=== PATIENT | female | born 1955 | race Caucasian/White ===

== ENCOUNTER → 2019-09-26 17:47 | Outpatient (CLI) | payer MEDICARE, SELFPAY ==
--- NOTE | ~2019-09-26 | MM_ITS ---
EXAMINATION: MM screening [facility] BI w bob HISTORY: Screening mammogram TECHNIQUE: Craniocaudal and mediolateral oblique 3-D tomosynthesis images were obtained and synthetic 2-D images were generated. CAD analysis was submitted and interpreted. COMPARISON: 07/23/2018, 09/24/2015, 07/01/2013 BREAST PARENCHYMAL COMPOSITION: There are scattered areas of fibroglandular density. FINDINGS: There is no evidence of suspicious mass, calcification, or architectural distortion to sugg est malignancy in either breast. There has been no suspicious interval change. IMPRESSION: 1. No mammographic evidence of malignancy. 2. Recommend routine screening mammography in one year. BI-RADS Category 1: Negative Reviewed, dictated and finalized at location A.
== END ==
PROVIDERS: Visit Provider Family Medicine
DX: Z12.31 Encounter for screening mammogram for malignant neoplasm of breast (principal)
CPT/HCPCS: 77063; 77067

== ENCOUNTER 2020-05-14 02:14 | Outpatient (CLI) | payer MEDICARE, SELFPAY ==
[2020-05-14 21:22] LABS: SARS-CoV-2 RNA PCR Negative
== END 2020-05-14 02:15 | disposition home or self-care (01) ==
LOC: ANHCOVIDDT 02:15
PROVIDERS: PCP Family Medicine; Visit Provider Internal Medicine Gastroenterology
DX: Z01.818 Encounter for other preprocedural examination (principal); Z20.828 Contact with and (suspected) exposure to other viral communicable diseases
CPT/HCPCS: 87635; C9803; U0003

== ENCOUNTER 2020-05-17 00:16 | Day surgery (SDC) | payer MEDICARE, SELFPAY ==
[2020-05-10 15:24] VITALS: BMI 25.0
[2020-05-17 08:26] VITALS: BP 152/94; PULSE 42; RESP 16; TEMP 36.5; O2SAT 100; BMI 24.5
--- NOTE | 2020-05-17 08:36 | ECG_ITS ---
Measurements Intervals [place] Rate: 83 P: 61 TX: 151 QRS: 50 QRSD: 80 T: 70 QT: 381 QTc: 450 Interpretive Statements SINUS RHYTHM VENTRICULAR BIGEMINY POSSIBLE RIGHT ATRIAL ENLARGEMENT LEFT ATRIAL ENLARGEMENT INCOMPLETE RIGHT BUNDLE BRANCH BLOCK BASELINE ARTIFACT- I, AVR ABNORMAL ECG Electronically Signed On 05-17-2020 8:45:08 DISTRICT CLAIMS MANAGER by Goldy Hanson D.O.
--- NOTE | 2020-05-17 08:38 | PM.IMHP ---
H&P: HPI History of Present Illness Date/Time: 05/17/20 08:38 Chief complaint: Hx of Colon Polyps Narrative: Reason for visit is colonoscopy. This very pleasant lady seen in consultation request of the primary physician. Impression: Screening and surveillance colonoscopy. The patient's history of adenomatous colon polyps and a strong family history of colon cancer. recommendation: Colonoscopy. History: This very pleasant lady's being evaluated for screening and surveillance colonoscopy. She has a history adenomatous colon polyps. She has a strong family history of colon cancer. She does have occasional indigestion, but her GI review systems otherwise negative. The patient does complain of palpitations at night time. She denies any chest pressure,. She has a little bit short of breath when she has palpitations. Physical examination: General: very pleasant patient in no acute distress. HEENT: Head was normocephalic sclerae is clear mouth without masses neck was supple. Heart: Rate rhythm Bradycardic. She has occasional an irregular rhythm. Lungs: CTA. Abdomen: Soft with no guarding or rigidity. Bowel sounds were active. Neurologic: Cranial nerves 2 through 12 intact. No focal defects. No clonus. Musculoskeletal system: Revealed no joint tenderness or swelling no muscle atrophy. Extremities: Reveal no significant edema. Skin: Warm and dry with normal turgor. Mental status: intact. Patient is alert and oriented. Review of Systems Review of Systems: All systems reviewed & are unremarkable except as noted in HPI and below PMFSH Past Medical History Medical History (Updated 05/17/20 @ 08:37 by Jak Oneill DO) Adenomatous colon polyp Ocular migraine Surgical History Surgical History (Updated 05/17/20 @ 08:38 by Jak Oneill DO) H/O colonoscopy Family History Family History Mother Acute myocardial infarction 66y/o Hypertension Heart disease Father Carcinoma of colon Hypertension Sibling Carcinoma of colon Social History Social History Smoking status: Light tobacco smoker Tobacco type: cigarettes Alcohol intake: current Drinks per week: 10 Alcohol use details: WINE/7&7'S Substance use: never Substance use type: does not use Living arrangements: with family Spiritual care concerns: No Meds Home Medications and Allergies Home Medications Medication Instructions Recorded Confirmed Type vitamins A,C,X-rxtb-qkudpp 14,320 1 cap PO BID #60 cap 01/24/20 05/17/20 Rx unit-226 mg-200 unit capsule Adults Multivitamin 1 cap PO DAILY 05/10/20 05/17/20 History cholecalciferol (vitamin D3) 50 mcg PO DAILY 05/10/20 05/17/20 History [Vitamin D3] magnesium 400 mg PO DAILY 05/10/20 05/17/20 History Allergies Allergy/AdvReac Type Severity Reaction Status Date / Time No Known Allergies Allergy Unknown Verified 05/17/20 08:25 Vital Signs Vital Signs - 24 hr 05/17/20 08:26 Temperature 36.5 C Pulse Rate 42 L Respiratory Rate 16 Blood Pressure 152/94 H Pulse Oximetry 100
[2020-05-17] MEDS: LACTATED RINGERS 1,000 ML 150 ML IV CONT (08:49)
--- NOTE | 2020-05-17 08:51 | SUR.PREOP ---
PT. HEART RATE PER PULSE OXIMETER 44. UPON PALPATION, HEART RATE 42-44/MINUTE. PT. PLACED ON 3-LEAD GRINDER OPERATOR, APPEARS TO BE BIGEMINY RHYTHM. DR. HOANG MADE AWARE, ORDERS RECEIVED FOR STAT EKG. EKG COMPLETED. DR. HOANG AT BEDSIDE TO SPEAK WITH PATIENT.
--- NOTE | 2020-05-17 08:56 | WPDANESEPPF ---
Anes - Initial Pre Proc Eval Procedure: Operation Date: 05/17/20 09:30 Proposed Procedures p Screening Colonoscopy - Jak Oneill DO Date/Time: 05/17/20 08:56 Surgeon: Jak Oneill DO Pre Op Diagnosis: Hx of Colon Polyps Patient Data Age: 65 Gender: F Height: 5 ft 3 in Weight: 62.9 kg Last Vital Signs Temp 97.7 F 05/17/20 08:26 Pulse 42 L 05/17/20 08:26 Resp 16 05/17/20 08:26 BP 152/94 H 05/17/20 08:26 Pulse Ox 100 05/17/20 08:26 Allergies Allergy/AdvReac Type Severity Reaction Status Date / Time No Known Allergies Allergy Unknown Verified 05/17/20 08:25 Home Medications Medication Instructions Recorded Confirmed Type vitamins A,C,M-wfpl-sezofy 14,320 1 cap PO BID #60 cap 01/24/20 05/17/20 Rx unit-226 mg-200 unit capsule Adults Multivitamin 1 cap PO DAILY 05/10/20 05/17/20 History cholecalciferol (vitamin D3) 50 mcg PO DAILY 05/10/20 05/17/20 History [Vitamin D3] magnesium 400 mg PO DAILY 05/10/20 05/17/20 History Patient hx anesthesia problems: none Family hx anesthesia problems: none PMFSH Past Medical History Medical History (Updated 05/17/20 @ 08:37 by Jak Oneill DO) Adenomatous colon polyp Ocular migraine Surgical History Surgical History (Updated 05/17/20 @ 08:38 by Jak Oneill DO) H/O colonoscopy Family History Family History Mother Acute myocardial infarction 66y/o Hypertension Heart disease Father Carcinoma of colon Hypertension Sibling Carcinoma of colon Social History Social History Smoking status: Light tobacco smoker Tobacco type: cigarettes Alcohol intake: current Drinks per week: 10 Alcohol use details: WINE/7&7'S Substance use: never Substance use type: does not use Living arrangements: with family Spiritual care concerns: No Anes - Eval Final PreProcedure Day of Procedure 05/17/20 08:56 Patient weight: normal Heart: irregular rhythm Lungs: clear to auscultation Airway: Mallampati scale class II Neurological: alert and oriented Last oral intake: >/= 8 hours ASA classification: III Emergent: no Anesthetic plan: proceed Anesthesia type and monitoring: general GIVS and standard monitoring Informed Consent: The patient's anesthetic plan and its attendant risks and benefits were discussed with the patient/family/POA. Questions were solicited and answers provided to the satisfaction of the patient/family/POA.
[2020-05-17 09:28] VITALS: BP 130/75; PULSE 84; RESP 21; O2SAT 98
[2020-05-17 09:38] VITALS: BP 140/99; PULSE 79; RESP 25; O2SAT 98
--- NOTE | 2020-05-17 09:45 | SUR.PHASEII ---
DR RODRIGUEZ INSTRUCTED PATIENT TO FOLLOW UP WITH PRIMARY DOCTOR, DR. WILBERT PEREZ, WITH HEART ISSUES.
[2020-05-17 09:48] VITALS: BP 160/81; PULSE 77; RESP 24; O2SAT 100
== END 2020-05-17 10:00 | disposition home or self-care (01) ==
PROVIDERS: PCP Family Medicine; Visit Provider Internal Medicine Gastroenterology
PROC: 0DJD8ZZ Inspection of Lower Intestinal Tract, Via Natural or Artificial Opening Endoscopic (ICD-10-PCS; CPT 45378; principal; 2020-05-17 09:30)
DX: Z12.11 Encounter for screening for malignant neoplasm of colon (principal); D12.2 Benign neoplasm of ascending colon; D12.0 Benign neoplasm of cecum; Z80.0 Family history of malignant neoplasm of digestive organs; K57.30 Diverticulosis of large intestine without perforation or abscess without bleeding; F17.210 Nicotine dependence, cigarettes, uncomplicated
CPT/HCPCS: 45385; 45380; 88305; 93005; J2704; J7120

== ENCOUNTER 2020-08-03 10:41 | Outpatient (CLI) | payer MEDICARE, SELFPAY ==
[2020-08-03 11:31] LABS: Cholesterol 208 mg/dL (0-200); HDL Direct 53 mg/dL; Triglycerides 94 mg/dL (<150)
[2020-08-03 11:42] LABS: LDL Cholesterol Direct 148 mg/dL
== END 2020-08-03 10:42 | disposition home or self-care (01) ==
PROVIDERS: PCP Family Medicine; Visit Provider Internal Medicine Cardiovascular Disease
DX: E78.5 Hyperlipidemia, unspecified (principal)
CPT/HCPCS: 36415; 80061

== ENCOUNTER 2020-08-31 07:31 | Outpatient (CLI) | payer MEDICARE, SELFPAY ==
--- NOTE | 2020-08-31 07:41 | ECHO_ITS ---
Patient Info Name: Patrica Ospina Age: 65 years : 1955 Gender: Female Ht: 63 in Wt: 143 lbs BSA: 1.71 m2 HR: 82 bpm BP: 182 / 91 mmHg Exam Date: 08/31/2020 7:51 AM Exam Location: [facility] Patient Status: Outpatient Admit Date: 08/31/2020 Staff Ordering Physician: Goldy Hanson DO Steel Heater: Shahida Rai RDCS Attending Provider: Goldy Hanson DO Referring Physician: Valentin MENDEZ; Exam Type: CA echo doppler color flow Study Info Indications R00.2 - Palpitations Complete two-dimensional, color flow and Doppler transthoracic echocardiogram is performed. Summary 1. Complete two-dimensional, color flow and Doppler transthoracic echocardiogram is performed. 2. Left ventricular chamber dimension is normal. 3. Left ventricular systolic function is normal, estimated at 55-60%. 4. The left ventricular diastolic function is abnormal. 5. E/e' 11 is mildly elevated. 6. Left atrial chamber dimension is moderately enlarged. 7. Right atrial chamber dimension is moderately enlarged. 8. Atrial septal aneurysm with evidence of right to left shunt suggestive of small patent foramen ovale. 9. There is trace aortic valve regurgitation. 10. There is mild mitral valve regurgitation. 11. There is mild tricuspid valve regurgitation. 12. No pulmonary hypertension, estimated pulmonary arterial systolic pressure is 38 mmHg. 13. There is trace pulmonic regurgitation. Left Ventricle E/e' 11 is mildly elevated. Left ventricular chamber dimension is normal. Left ventricular systolic function is normal, estimated at 55-60%. The left ventricular diastolic function is abnormal. Right Ventricle Right ventricular chamber dimension is normal. Right ventricular systolic function is normal. Left Atria Left atrial chamber dimension is moderately enlarged. Right Atria Right atrial chamber dimension is moderately enlarged. Atrial Septum Atrial septal aneurysm with evidence of right to left shunt suggestive of small patent foramen ovale. Patent foramen ovale visualized by Doppler imaging. Aortic Valve The aortic valve is trileaflet. There is no aortic valve stenosis. There is trace aortic valve regurgitation. Pulmonic Valve There is trace pulmonic regurgitation. Mitral Valve There is no mitral valve stenosis. There is mild mitral valve regurgitation. Tricuspid Valve There is mild tricuspid valve regurgitation. No pulmonary hypertension, estimated pulmonary arterial systolic pressure is 38 mmHg. Pericardium/Pleural There is no pericardial effusion. Inferior Vena Cava Normal inferior vena cava with >50% collapse upon inspiration consistent with normal right atrial pressure, 5 mmHg. Aorta The aortic root size at the sinus of Valsalva is normal. Left Ventricular Outflow Tract Name Value Normal LVOT 2D LVOT Diameter 2.1 cm LVOT Doppler LVOT Peak Gradient 3 mmHg LVOT Mean Gradient 1 mmHg LVOT VTI 19 cm LVOT VTI/AV VTI Ratio 0.7 LVOT Stroke Volume
--- NOTE | 2020-08-31 07:41 | EST_ITS ---
Patient Info Name: Patrica Ospina Age: 65 years : 1955 Gender: Female Ht: 63 in Wt: 145 lbs BSA: 1.72 m2 Exam Date: 08/31/2020 8:45 AM Exam Location: [facility] Stress Patient Status: Outpatient Admit Date: 08/31/2020 Staff Ordering Physician: Goldy Hanson DO Attending Provider: Goldy Hanson DO Exercise Technologist: Jodi Cardenas CT Exercise Physician: Goldy Hanson DO Exam Type: CA stress test treadmill Study Info A treadmill exercise stress test was performed. Summary 1. 1. Negative [place] exercise stress test for ischemic ST changes by ECG criteria. 2. 2. Good functional capacity, achieving 8.9 METs of workload. 3. 3. Appropriate HR response to exercise. 4. 4. Appropriate HR recovery at 1 minute post exercise. 5. 5. Frequent ventricular ectopics. 6. 6. No imaging with stress testing. 7. 7. Patient informed of the above results. Protocol: [place] Stress ECG Details Stage: REST Duration (min): 7 min : 12 sec Speed (mph): 0.0 Grade (%): 0 HR (bpm): 90 SBP (mmHg): 151 DBP (mmHg): 90 METS: --- Stage: REST Duration (min): 7 min : 53 sec Speed (mph): 0.0 Grade (%): 0 HR (bpm): 78 SBP (mmHg): 151 DBP (mmHg): 90 METS: --- Stage: REST Duration (min): 9 min : 22 sec Speed (mph): 0.0 Grade (%): 0 HR (bpm): 80 SBP (mmHg): 151 DBP (mmHg): 90 METS: --- Stage: REST Duration (min): 14 min : 45 sec Speed (mph): 0.0 Grade (%): 0 HR (bpm): 83 SBP (mmHg): 151 DBP (mmHg): 90 METS: --- Stage: STAGE 1 Duration (min): 1 min : 0 sec Speed (mph): 1.7 Grade (%): 10 HR (bpm): 103 SBP (mmHg): 151 DBP (mmHg): 90 METS: --- Stage: STAGE 1 Duration (min): 2 min : 0 sec Speed (mph): 1.7 Grade (%): 10 HR (bpm): 109 SBP (mmHg): 151 DBP (mmHg): 90 METS: --- Stage: STAGE 1 Duration (min): 3 min : 0 sec Speed (mph): 1.7 Grade (%): 10 HR (bpm): 112 SBP (mmHg): 161 DBP (mmHg): 93 METS: --- Stage: STAGE 2 Duration (min): 1 min : 0 sec Speed (mph): 2.5 Grade (%): 12 HR (bpm): 115 SBP (mmHg): 161 DBP (mmHg): 93 METS: --- Stage: STAGE 2 Duration (min): 2 min : 0 sec Speed (mph): 2.5 Grade (%): 12 HR (bpm): 120 SBP (mmHg): 184 DBP (mmHg): 93 METS: --- Stage: STAGE 2 Duration (min): 3 min : 0 sec Speed (mph): 2.5 Grade (%): 12 HR (bpm): 122 SBP (mmHg): 184 DBP (mmHg): 93 METS: --- Stage: STAGE 3 Duration (min): 1 min : 0 sec Speed (mph): 3.4 Grade (%): 14 HR (bpm): 132 SBP (mmHg): 175 DBP (mmHg): 99 METS: --- Stage: STAGE 3 Duration (min): 1 min : 0 sec Speed (mph): 3.4 Grade (%): 14 HR (bpm): 132 SBP (mmHg): 175 DBP (mmHg): 99 METS: --- Stage: RECOVERY Duration (min): 0 min : 59 sec Speed (mph): 0.0 Grade (%):
== END 2020-08-31 07:32 | disposition home or self-care (01) ==
PROVIDERS: PCP Family Medicine; Visit Provider Internal Medicine Cardiovascular Disease
DX: R00.2 Palpitations (principal)
CPT/HCPCS: 93017; 93306

== ENCOUNTER 2020-09-28 10:05 | Outpatient (CLI) | payer MEDICARE, SELFPAY ==
[2020-09-28 11:10] LABS: Hematocrit 41.6 % (37.0-47.0); Hemoglobin 13.6 g/dL (12.0-15.0); Mean Corpuscular HGB Conc 32.7 g/dl (32-36); Mean Corpuscular Hemoglobin 30.3 pg (26-34); Mean Corpuscular Volume 92.7 fl (80-100); Platelet Count Result 263 k/mm3 (150-375); Red Blood Count 4.49 M/mm3 (4.2-5.4); Red Cell Distribution Width 13.1 % (11.5-14.5); White Blood Count 5.4 K/mm3 (4.5-10.0)
[2020-09-28 11:37] LABS: Alanine Aminotransferase 30 U/L (4-35); Albumin Level 4.3 g/dL (3.5-5.1); Alkaline Phosphatase 77 U/L (38-126); Anion Gap 3 mmol/L (8-16); Aspartate Amino Transferase 30 U/L (14-36); Bilirubin,Total 0.6 mg/dL (0.2-1.3); Blood Urea Nitrogen 16 mg/dL (7-17); Carbon Dioxide 33 mmol/L (22-30); Chloride 103 mmol/L (98-107); Cholesterol 224 mg/dL (0-200); Estimated Glomerular Filt Rate > 60; Glucose 107 mg/dL (65-105); HDL Direct 51 mg/dL; Potassium 4.8 mmol/L (3.4-5.0); Sodium 139 mmol/L (137-145); Triglycerides 120 mg/dL (<150)
[2020-09-28 11:48] LABS: LDL Cholesterol Direct 140 mg/dL
== END 2020-09-28 10:06 | disposition home or self-care (01) ==
PROVIDERS: PCP Family Medicine; Visit Provider Family Medicine
DX: R53.83 Other fatigue (principal); I10 Essential (primary) hypertension; E78.2 Mixed hyperlipidemia; E55.9 Vitamin D deficiency, unspecified
CPT/HCPCS: 36415; 80053; 80061; 82306; 84443; 85027

== ENCOUNTER → 2020-11-21 15:46 | Outpatient (CLI) | payer MEDICARE, SELFPAY ==
--- NOTE | ~2020-11-21 | MM_ITS ---
EXAMINATION: MM screening [facility] BI w bob HISTORY: Screening mammogram TECHNIQUE: Craniocaudal and mediolateral oblique 3-D tomosynthesis images were obtained and synthetic 2-D images were generated. CAD analysis was submitted and interpreted. COMPARISON: 09/26/2019, 07/23/2018, 09/24/2015 bilateral digital screening mammogram examinations BREAST PARENCHYMAL COMPOSITION: There are scattered areas of fibroglandular density. FINDINGS: Stable mild fibroglandular asymmetry since prior examinations. There is no evidence of susp icious mass, calcification, or architectural distortion to suggest malignancy in either breast. There has been no suspicious interval change. IMPRESSION: 1. No mammographic evidence of malignancy. 2. Recommend routine screening mammography in one year. BI-RADS Category 1: Negative Reviewed, dictated and finalized at location A.
== END ==
PROVIDERS: PCP Family Medicine; Visit Provider Family Medicine
DX: Z12.31 Encounter for screening mammogram for malignant neoplasm of breast (principal)
CPT/HCPCS: 77063; 77067

== ENCOUNTER 2020-12-04 10:33 | Outpatient (CLI) | payer MEDICARE, SELFPAY ==
[2020-12-04 11:22] LABS: Cholesterol 215 mg/dL (0-200); HDL Direct 57 mg/dL; Triglycerides 90 mg/dL (<150)
[2020-12-04 11:25] LABS: Alanine Aminotransferase 17 U/L (4-35); Alkaline Phosphatase 69 U/L (38-126); Anion Gap 5 mmol/L (8-16); Aspartate Amino Transferase 25 U/L (14-36); Bilirubin,Total 0.4 mg/dL (0.2-1.3); Blood Urea Nitrogen 16 mg/dL (7-17); Calcium 9.1 mg/dL (8.4-10.2); Carbon Dioxide 30 mmol/L (22-30); Chloride 106 mmol/L (98-107); Estimated Glomerular Filt Rate > 60; Glucose 102 mg/dL (65-105); Potassium 4.9 mmol/L (3.4-5.0); Sodium 141 mmol/L (137-145)
[2020-12-04 11:34] LABS: LDL Cholesterol Direct 111 mg/dL
== END 2020-12-04 10:34 | disposition home or self-care (01) ==
PROVIDERS: PCP Family Medicine; Visit Provider Internal Medicine Cardiovascular Disease
DX: E78.5 Hyperlipidemia, unspecified (principal)
CPT/HCPCS: 36415; 80053; 80061

== ENCOUNTER 2021-04-15 07:46 | Outpatient (CLI) | payer MEDICARE, SELFPAY ==
--- NOTE | 2021-04-25 13:42 | WPDHOMESLEEP ---
Sleep Study - Home Unattended Date of Study: 04/15/21 <Carolyn Mancilla DO - Last Filed: 04/25/21 13:59> Ordering Provider: Goldy Hanson DO <Carolyn Mancilla DO - Last Filed: 04/25/21 13:59> Interpreting Provider: Carolyn Mancilla DO <Carolyn Mancilla DO - Last Filed: 04/25/21 13:59> Home Sleep Study Type: Apnea Link Air <Carolyn Mancilla DO - Last Filed: 04/25/21 13:59> Height: 1.57 m <Carolyn Mancilla DO - Last Filed: 04/25/21 13:59> Weight: 63.503 kg <Carolyn Mancilla DO - Last Filed: 04/25/21 13:59> Body Mass Index: 25.6 <Carolyn Mancilla DO - Last Filed: 04/25/21 13:59> Neck Circumference (inches): 14 <Carolyn Mancilla DO - Last Filed: 04/25/21 13:59> [place]: 1 <Carolyn Mancilla DO - Last Filed: 04/25/21 13:59> Reason for Sleep Study Loud snoring, gasping for air at night and ventricular ectopy <Carolyn Mancilla DO - Last Filed: 04/25/21 13:59> Sleep History The patient is a 66-year-old female with hypertension, hyperlipidemia, palpitations, anxiety and depression that had a home sleep test ordered by her pipe crew foreman due to loud snoring, waking up gasping for air and heart palpitations. The patient is currently retired. She denies awakening from sleep short of breath. She rarely awakens at night with heartburn, belching or cough. She occasionally snores loud enough that others complain. She denies having trouble sleeping when she has a cold. She rarely wakes up gasping for air throughout the night. She denies heart palpitations throughout the night. She denies falling asleep during the day and while driving. She denies sleep paralysis and cataplexy. she occasionally experiences vivid dreamlike scenes upon awakening or falling asleep. She denies having nightmares. She occasionally has thoughts racing through her mind. She rarely feels sad, depressed or anxious. She occasionally notices that her legs jerk. She occasionally experiences crawling and aching feelings in her legs. She rarely has leg pain during the night. She denies grinding her teeth during sleep and awakening with jaw pain. She is really bothered by pain during the day and is never awakened by pain during the night. She rarely wakes up feeling stiff in the morning with sore and achy muscles. She goes to bed at 9:00 p.m. on both the weekdays and weekends. It takes her 30-60 minutes to fall asleep. She will wake up 4-5 times per night. When she wakes up, she will roll onto her side. She is able to fall asleep immediately. She wakes up at 9:00 a.m. on both the weekdays and weekends. She gets about 10 hours of sleep per night. She will stay in bed for 10 minutes after awakening in the morning. She does not consume any caffeinated beverages within 2 hours of going to sleep. She does not engage in physical exercise before bedtime. She will watch television before falling asleep. She rarely takes naps in the afternoon or the evening. She will drink 2 cups of coffee per day and 1-2 alcoholic beverages per day. She denies tobacco and recreational drug use. <Carolyn Mancilla DO - Last Filed: 04/25/21 13:59> [facility] Past Medical History Medical History: Medical History Adenomatous colon polyp Anxiety Depression Encounter for immunization Essential hypertension Ocular migraine <Carolyn Mancilla DO - Last Filed: 04/25/21 13:59> Surgical History Surgical History: Surgical History H/O colonoscopy <Carolyn Mancilla DO - Last Filed: 04/25/21 13:59> Family History Family History: Family History Mother Acute myocardial infarction 66y/o Hypertension Heart disease Father Carcinoma of colon Hypertension Si
[2021-04-25 13:58] VITALS: BMI 25.6
== END 2021-04-16 10:34 | disposition home or self-care (01) ==
LOC: ANHCSM 07:47
PROVIDERS: PCP Family Medicine; Visit Provider Internal Medicine Cardiovascular Disease
DX: G47.10 Hypersomnia, unspecified (principal); G47.33 Obstructive sleep apnea (adult) (pediatric)
CPT/HCPCS: 95806

== ENCOUNTER 2021-04-30 08:38 | Outpatient (CLI) | payer MEDICARE, SELFPAY ==
--- NOTE | ~2021-04-30 | DEXA_ITS ---
Bone Density Report Name: Patrica Ospina Age: 66 Sex: Female Ethnicity: White Date of : 1955 Indication: postmenopausal; hysterectomy; Referring Provider: Radha Schuster Study: Bone densitometry was performed. Exam Date: April 30, 2021 Accession number: [id number] Bone Density: Region BMD T-score Z-score Classification AP Spine (L1-L4) 0.815 -2.1 -0.2 Osteopenia Femoral Neck (Left) 0.635 -1.9 -0.3 Osteopenia Total Hip (Left) 0.799 -1.2 0.2 Osteopenia Total Hip Bilateral Avg 0.794 -1.3 0.2 Osteopenia Femoral Neck (Right) 0.576 -2.5 -0.8 Osteoporosis Total Hip (Right) 0.787 -1.3 0.1 Osteopenia World Health Organization criteria for BMD impression classify patients as: Normal (T-score at or above -1.0), Osteopenia (T-score between -1.0 and -2.5), or Osteoporosis (T-score at or below -2.5). 10-year Fracture Risk: FRAX not reported because: Some T-score for Spine Total or Hip Total or Femoral Neck at or below -2.5 Clinical Information Provided by Patient: Has used the following medications: Vitamin D Has the following medical conditions: Hysterectomy Patient maximum height was 63 Menopause Age: 55 Drinks caffeinated beverages Onset of menses at age 16 Number of children 3 Impression: The patient has osteoporosis, based on the Right Femoral Neck T-score. Discussion: INCREASED RISK OF FRACTURE. BONE DENSITY IS UNDESIRABLY LOW AT ONE OR MORE SKELETAL SITES, CONSISTENT WITH POSTMENOPAUSAL OSTEOPOROSIS. This patient's lowest T-score meets the World Health Organization's (WHO) criteria for osteoporosis at one or more sites (T-score -2.5 or below). In untreated patients, the risk of osteoporotic fracture increases approximately two-fold for each 1.0 SD decrease in T-score. Low bone density is not the only risk factor for fracture; also consider factors such as patient's age, frailty or poor health, risk of falling, risk of injury, previous osteoporotic fracture, family history of osteoporosis, cigarette smoking, low body weight, etc. Not everyone with low bone mineral density has osteoporosis; osteomalacia and other metabolic bone disorders should also be considered. Patients who have osteoporosis should be evaluated for specific diseases and conditions (secondary causes) that may cause or contribute to bone loss. The [place] Association of Clinical Endocrinologists (AACE) and National Osteoporosis Foundation (NOF) recommend pharmacologic intervention for all postmenopausal women whose T-score is in this range. The patient should follow a healthful lifestyle (good nutrition with adequate calcium and vitamin D, and appropriate weight-bearing exercise). Follow-Up: Consider a repeat BMD and Vertebral Fracture Assessment (VFA) exam in 2 years or sooner if medically necessary, to reassess this patient's status. Roberto
== END 2021-04-30 08:39 | disposition home or self-care (01) ==
LOC: ANHIMG 08:41
PROVIDERS: PCP Family Medicine; Visit Provider Family Medicine
DX: Z78.0 Asymptomatic menopausal state (principal); M85.88 Other specified disorders of bone density and structure, other site; M85.852 Other specified disorders of bone density and structure, left thigh; M85.851 Other specified disorders of bone density and structure, right thigh; M81.0 Age-related osteoporosis without current pathological fracture
CPT/HCPCS: 77080

== ENCOUNTER 2021-06-03 08:52 | Outpatient (CLI) | payer MEDICARE, SELFPAY ==
[2021-06-03 09:39] LABS: Hematocrit 40.9 % (37.0-47.0); Hemoglobin 13.7 g/dL (12.0-15.0); Mean Corpuscular HGB Conc 33.5 g/dl (32-36); Mean Corpuscular Hemoglobin 32.2 pg (26-34); Mean Corpuscular Volume 96.2 fl (80-100); Platelet Count Result 254 k/mm3 (150-375); Red Blood Count 4.25 M/mm3 (4.2-5.4); Red Cell Distribution Width 12.4 % (11.5-14.5); White Blood Count 5.3 K/mm3 (4.5-10.0)
[2021-06-03 09:51] LABS: Alanine Aminotransferase 19 U/L (4-35); Albumin Level 4.1 g/dL (3.5-5.1); Alkaline Phosphatase 90 U/L (38-126); Anion Gap 4 mmol/L (8-16); Aspartate Amino Transferase 23 U/L (14-36); Bilirubin,Total 0.5 mg/dL (0.2-1.3); Blood Urea Nitrogen 14 mg/dL (7-17); Calcium 9.2 mg/dL (8.4-10.2); Carbon Dioxide 30 mmol/L (22-30); Chloride 100 mmol/L (98-107); Cholesterol 237 mg/dL (0-200); Estimated Glomerular Filt Rate > 60; Glucose 115 mg/dL (65-110); HDL Direct 56 mg/dL; Potassium 4.4 mmol/L (3.4-5.0); Sodium 134 mmol/L (137-145); Triglycerides 142 mg/dL (<150)
[2021-06-03 10:02] LABS: LDL Cholesterol Direct 152 mg/dL
[2021-06-03 13:35] LABS: Vitamin D 25 Hydroxy 55.7 ng/mL
== END 2021-06-03 08:53 | disposition home or self-care (01) ==
LOC: ANHLAB 08:56
PROVIDERS: PCP Family Medicine; Visit Provider Family Medicine
DX: R53.83 Other fatigue (principal); E55.9 Vitamin D deficiency, unspecified; I10 Essential (primary) hypertension; E78.2 Mixed hyperlipidemia
CPT/HCPCS: 36415; 80053; 80061; 82306; 84443; 85027

== ENCOUNTER 2021-06-25 07:42 | Outpatient (CLI) | payer MEDICARE, SELFPAY ==
--- NOTE | 2021-07-09 15:21 | WPDSLEEPSTUD ---
Sleep Study Date of Study: 06/25/21 <Carolyn Mancilla DO - Last Filed: 07/09/21 15:47> Ordering Provider: Goldy Hanson DO <Carolyn Maniclla, DO - Last Filed: 07/09/21 15:47> Interpreting Physician: Carolyn Mancilla DO <Carolyn Mancilla DO - Last Filed: 07/09/21 15:47> Sleep Study Type: CPAP Titration <Carolyn Mancilla DO - Last Filed: 07/09/21 15:47> Height: 1.57 m <Carolyn Mancilla DO - Last Filed: 07/09/21 15:47> Weight: 63.503 kg <Carolyn Mancilla DO - Last Filed: 07/09/21 15:47> Body Mass Index: 25.6 <Carolyn Mancilla DO - Last Filed: 07/09/21 15:47> Neck Circumference (inches): 13.5 <Carolyn Mancilla DO - Last Filed: 07/09/21 15:47> [place]: 5 <Carolyn Mancilla DO - Last Filed: 07/09/21 15:47> Reason for Sleep Study The patient had a HSAT on 04/15/21 that showed an AHI of 13.8. She had 28 central apneas with a central apnea index of 2.6. It was recommended that she have a PAP Titration study. <Carolyn Mancilla DO - Last Filed: 07/09/21 15:47> Sleep History The patient is a 66-year-old female with hypertension, hyperlipidemia, palpitations, anxiety and depression that had a home sleep test ordered by her customer experience specialist due to loud snoring, waking up gasping for air and heart palpitations. The patient is currently retired. She denies awakening from sleep short of breath. She rarely awakens at night with heartburn, belching or cough. She occasionally snores loud enough that others complain. She denies having trouble sleeping when she has a cold. She rarely wakes up gasping for air throughout the night. She denies heart palpitations throughout the night. She denies falling asleep during the day and while driving. She denies sleep paralysis and cataplexy. she occasionally experiences vivid dreamlike scenes upon awakening or falling asleep. She denies having nightmares. She occasionally has thoughts racing through her mind. She rarely feels sad, depressed or anxious. She occasionally notices that her legs jerk. She occasionally experiences crawling and aching feelings in her legs. She rarely has leg pain during the night. She denies grinding her teeth during sleep and awakening with jaw pain. She is really bothered by pain during the day and is never awakened by pain during the night. She rarely wakes up feeling stiff in the morning with sore and achy muscles. She goes to bed at 9:00 p.m. on both the weekdays and weekends. It takes her 30-60 minutes to fall asleep. She will wake up 4-5 times per night. When she wakes up, she will roll onto her side. She is able to fall asleep immediately. She wakes up at 9:00 a.m. on both the weekdays and weekends. She gets about 10 hours of sleep per night. She will stay in bed for 10 minutes after awakening in the morning. She does not consume any caffeinated beverages within 2 hours of going to sleep. She does not engage in physical exercise before bedtime. She will watch television before falling asleep. She rarely takes naps in the afternoon or the evening. She will drink 2 cups of coffee per day and 1-2 alcoholic beverages per day. She denies tobacco and recreational drug use. <Carolyn Mancilla DO - Last Filed: 07/09/21 15:47> [facility] Past Medical History Medical History: Medical History Adenomatous colon polyp Anxiety Depression Encounter for immunization Essential hypertension Ocular migraine <Carolyn Mancilla DO - Last Filed: 07/09/21 15:47> Surgical History Surgical History: Surgical History H/O colonoscopy <Carolyn Mancilla DO - Last Filed: 07/09/21 15:47> Family History Family History: Family History Mother Acute myocardial infarction Passed aw
[2021-07-09 15:32] VITALS: BMI 25.6
== END 2021-06-26 06:29 | disposition home or self-care (01) ==
LOC: ANHCSM 07:43
PROVIDERS: PCP Family Medicine; Visit Provider Internal Medicine Cardiovascular Disease
DX: G47.33 Obstructive sleep apnea (adult) (pediatric) (principal)
CPT/HCPCS: 95811

== ENCOUNTER 2021-11-11 09:10 | Outpatient (CLI) | payer MEDICARE, SELFPAY ==
[2021-11-11 09:52] LABS: Hemoglobin 13.2 g/dL (12.0-15.0); Mean Corpuscular Hemoglobin 31.5 pg (26-34); Mean Corpuscular Volume 95.5 fl (80-100); Mean Platelet Volume 10.6 fl (7.4-10.4); Platelet Count Result 278 k/mm3 (150-375); Red Blood Count 4.19 M/mm3 (4.2-5.4); Red Cell Distribution Width 12.8 % (11.5-14.5); White Blood Count 5.4 K/mm3 (4.5-10.0)
[2021-11-11 10:08] LABS: Alanine Aminotransferase 19 U/L (6-35); Albumin Level 4.1 g/dL (3.5-5.1); Alkaline Phosphatase 76 U/L (38-126); Anion Gap 3 mmol/L (8-16); Aspartate Amino Transferase 25 U/L (14-36); Bilirubin,Total 0.6 mg/dL (0.2-1.3); Blood Urea Nitrogen 16 mg/dL (7-17); Calcium 8.5 mg/dL (8.4-10.2); Carbon Dioxide 31 mmol/L (22-30); Chloride 104 mmol/L (98-107); Cholesterol 193 mg/dL (0-200); Estimated Glomerular Filt Rate > 60; Glucose 120 mg/dL (65-110); HDL Direct 50 mg/dL; Potassium 4.4 mmol/L (3.4-5.0); Sodium 138 mmol/L (137-145); Triglycerides 119 mg/dL (<150)
[2021-11-11 10:19] LABS: LDL Cholesterol Direct 99 mg/dL
[2021-11-11 10:35] LABS: Iron 110 ug/dL (37-170)
[2021-11-11 10:47] LABS: Percent Iron Saturation 41 % (20-50)
[2021-11-11 10:55] LABS: Free T4 Free Thyroxine 0.92 ng/mL (0.78-2.19)
[2021-11-11 14:15] LABS: Hemoglobin A1C 5.6 % (<5.7)
== END 2021-11-11 09:11 | disposition home or self-care (01) ==
LOC: ANHLAB 09:12
PROVIDERS: PCP Family Medicine; Visit Provider Physician Assistant
DX: R53.83 Other fatigue (principal); E78.5 Hyperlipidemia, unspecified; I10 Essential (primary) hypertension; D64.9 Anemia, unspecified; Z13.1 Encounter for screening for diabetes mellitus; Z13.220 Encounter for screening for lipoid disorders; Z51.81 Encounter for therapeutic drug level monitoring; Z79.899 Other long term (current) drug therapy
CPT/HCPCS: 36415; 80053; 80061; 82607; 82728; 83036; 83540; 83550; 84439; 84443; 85027

== ENCOUNTER → 2022-02-28 12:24 | Outpatient (CLI) | payer MEDICARE, SELFPAY ==
--- NOTE | ~2022-02-28 | MM_ITS ---
EXAMINATION: MM screening [facility] BI w bob HISTORY: Screening mammogram TECHNIQUE: Craniocaudal and mediolateral oblique 3-D tomosynthesis images were obtained and synthetic 2-D images were generated. CAD analysis was submitted and interpreted. COMPARISON: 11/21/2020, 09/26/2019, 07/23/2018 BREAST PARENCHYMAL COMPOSITION: There are scattered areas of fibroglandular density. FINDINGS: There is no suspicious mass, calcification, or architectural distortion to suggest malignan cy in either breast. There has been no suspicious interval change. IMPRESSION: 1. No mammographic evidence of malignancy. 2. Recommend routine screening mammography in one year. BI-RADS Category 1: Negative Reviewed, dictated and finalized at location A.
== END ==
PROVIDERS: PCP Family Medicine; Visit Provider Family Medicine
DX: Z12.31 Encounter for screening mammogram for malignant neoplasm of breast (principal)
CPT/HCPCS: 77063; 77067

== ENCOUNTER 2022-11-06 09:54 | Outpatient (CLI) | payer MEDICARE, SELFPAY ==
[2022-11-06 10:23] LABS: Alanine Aminotransferase 22 U/L (6-35); Albumin Level 3.3 g/dL (3.5-5.1); Alkaline Phosphatase 46 U/L (38-126); Anion Gap 1 mmol/L (8-16); Aspartate Amino Transferase 25 U/L (14-36); Bilirubin,Total 0.6 mg/dL (0.2-1.3); Blood Urea Nitrogen 13 mg/dL (7-17); Calcium 8.1 mg/dL (8.4-10.2); Carbon Dioxide 32 mmol/L (22-30); Chloride 106 mmol/L (98-107); Cholesterol 144 mg/dL (0-200); Estimated Glomerular Filt Rate > 60; Glucose 110 mg/dL (65-110); HDL Direct 39 mg/dL; Potassium 4.9 mmol/L (3.4-5.0); Sodium 139 mmol/L (137-145); Triglycerides 132 mg/dL (<150)
[2022-11-06 10:34] LABS: LDL Cholesterol Direct 85 mg/dL
[2022-11-06 10:48] LABS: Hemoglobin A1C 5.9 % (<5.7)
[2022-11-06 10:56] LABS: Free T4 Free Thyroxine 0.91 ng/mL (0.78-2.19)
== END 2022-11-06 09:55 | disposition home or self-care (01) ==
PROVIDERS: PCP Family Medicine; Visit Provider Physician Assistant
DX: R53.83 Other fatigue (principal); E11.9 Type 2 diabetes mellitus without complications; Z13.220 Encounter for screening for lipoid disorders
CPT/HCPCS: 36415; 80053; 80061; 83036; 84439; 84443

== ENCOUNTER 2023-05-19 08:29 | Outpatient (CLI) | payer MEDICARE, SELFPAY ==
[2023-05-19 09:33] LABS: Alanine Aminotransferase 18 U/L (6-35); Alkaline Phosphatase 42 U/L (38-126); Anion Gap 4 mmol/L (8-16); Aspartate Amino Transferase 24 U/L (14-36); Bilirubin,Total 0.6 mg/dL (0.2-1.3); Blood Urea Nitrogen 15 mg/dL (7-17); Calcium 7.9 mg/dL (8.4-10.2); Carbon Dioxide 28 mmol/L (22-30); Chloride 105 mmol/L (98-107); Creatine Kinase 79 U/L (30-135); Estimated Glomerular Filt Rate > 60; Glucose 119 mg/dL (65-110); Potassium 4.2 mmol/L (3.4-5.0); Sodium 137 mmol/L (137-145)
== END 2023-05-19 08:30 | disposition home or self-care (01) ==
LOC: ANHLAB 08:31
PROVIDERS: PCP Family Medicine; Visit Provider Physician Assistant
DX: E53.8 Deficiency of other specified B group vitamins (principal); Z13.1 Encounter for screening for diabetes mellitus; M79.10 Myalgia, unspecified site
CPT/HCPCS: 36415; 80053; 82550; 82607

== ENCOUNTER 2023-05-25 15:54 | Outpatient (CLI) | payer MEDICARE, SELFPAY ==
[2023-05-25 16:46] LABS: Parathyroid Intact 39.1 pg/mL (7.5-53.5)
[2023-05-29 21:31] LABS: Ionized Calcium 4.9 mg/dL (4.7-5.5)
[2023-05-30 15:09] LABS: Vitamin D 1,25 (OH)2 Total 59 pg/mL (18-72); Vitamin D2 1,25 (OH)2 <8 pg/mL; Vitamin D3 1,25 (OH)2 59 pg/mL
== END 2023-05-25 15:55 | disposition home or self-care (01) ==
PROVIDERS: PCP Family Medicine; Visit Provider Physician Assistant
DX: E55.9 Vitamin D deficiency, unspecified (principal)
CPT/HCPCS: 36415; 82330; 82652; 83970

== ENCOUNTER → 2023-06-04 13:18 | Outpatient (CLI) | payer MEDICARE, SELFPAY ==
--- NOTE | ~2023-06-04 | MM_ITS ---
EXAMINATION: MM screening [facility] BI w bob HISTORY: Screening mammogram TECHNIQUE: Craniocaudal and mediolateral oblique 3-D tomosynthesis images were obtained and synthetic 2-D images were generated. CAD analysis was submitted and interpreted. COMPARISON: 02/28/2022, 11/21/2020, 09/26/2019 BREAST PARENCHYMAL COMPOSITION: There are scattered areas of fibroglandular density. FINDINGS: No suspicious mass, calcification, or architectural distortion are identified in either leonard ast to suggest malignancy. There has been no suspicious interval change. IMPRESSION: 1. No mammographic evidence of malignancy. 2. Recommend routine screening mammography in one year. BI-RADS Category 1: Negative Reviewed, dictated and finalized at location A. HER REPAIRER
== END ==
PROVIDERS: PCP Family Medicine; Visit Provider Family Medicine
DX: Z12.31 Encounter for screening mammogram for malignant neoplasm of breast (principal)
CPT/HCPCS: 77063; 77067

== ENCOUNTER 2023-06-17 01:54 | Day surgery (SDC) | payer MEDICARE, SELFPAY ==
[2023-06-03 10:20] VITALS: BMI 27.3
--- NOTE | 2023-06-15 09:22 | SUR.PREOP ---
Patient called regarding upcoming procedure. Reviewed preop instructions, new appointment times, and procedure prep.
[2023-06-17 07:55] VITALS: BP 147/85; PULSE 74; RESP 18; TEMP 36.2; O2SAT 98
[2023-06-17] MEDS: LACTATED RINGERS 1,000 ML 150 ML IV CONT (08:10)
--- NOTE | 2023-06-17 08:24 | WPDANESEPPF ---
Anes - Initial Pre Proc Eval Procedure: Operation Date: 06/17/23 09:00 Proposed Procedures p Colonoscopy - Palmer Nguyen MD Date/Time: 06/17/23 08:24 Surgeon: Palmer Nguyen MD Pre Op Diagnosis: hx of colon polyps, benign neoplasm of colon Patient Data Age: 68 Gender: F Height: 1.57 m Weight: 65.8 kg Last Vital Signs Temp 36.2 C L 06/17/23 07:55 Pulse 74 06/17/23 07:55 Resp 18 06/17/23 07:55 BP 147/85 H 06/17/23 07:55 Pulse Ox 98 06/17/23 07:55 O2 Del Method Room Air 06/17/23 07:55 Allergies Allergy/AdvReac Type Severity Reaction Status Date / Time No Known Allergies Allergy Unknown Verified 06/17/23 07:53 Home Medications Medication Instructions Recorded Confirmed Type vitamins A,C,U-mgle-pdncsl 4,296 1 cap PO BID #60 caps 01/24/20 06/03/23 Rx mcg-226 mg-90 mg capsule (PreserVision AREDS) cholecalciferol (vitamin D3) 50 50 mcg PO DAILY 05/10/20 06/03/23 History mcg (2,000 unit) capsule (Vitamin D3) magnesium 400 mg PO DAILY 05/10/20 06/03/23 History lisinopril 20 mg tablet 20 mg PO DAILY #90 tabs 02/12/23 06/03/23 Rx atorvastatin 20 mg tablet 20 mg PO DAILY #90 tabs 03/08/23 06/03/23 Rx duloxetine 20 mg capsule,delayed 20 mg PO DAILY #30 caps 04/29/23 06/03/23 Rx release alendronate 70 mg tablet 70 mg PO WEEKLY #12 tabs 06/07/23 Rx Patient hx anesthesia problems: none Family hx anesthesia problems: none Results Review: All pre-operative results and documents have been reviewed as part of the pre-operative evaluation. [facility] Past Medical History Medical History Adenomatous colon polyp Anxiety Depression Encounter for immunization Essential hypertension Ocular migraine Osteoporosis Surgical History Surgical History H/O colonoscopy Family History Family History Mother Acute myocardial infarction 66y/o Hypertension Heart disease Father Carcinoma of colon Hypertension Sibling Carcinoma of colon Social History Social History Smoking packs per day: 0.5 Smoking cigarettes per day: 10.0 Years smoked: 10 Smoking pack-years: 5.00 Smoking status: Former smoker Tobacco type: cigarettes Second hand tobacco smoke exposure: No Alcohol intake: current Drinks per week: 10 Alcohol use details: WINE Substance use: never Substance use type: does not use Lack of Transportation: No Lack of Food: Never True Current Housing: I Have Housing Concerned About Future Housing: No Difficulty Paying Gas/Electric Bills: No Difficulty Paying for Meds: No Currently Unemployed: No Education: Decline to Answer Difficulty w/ Childcare or Family Care: No Living arrangements: with family Occupation/Education: retired Gender identity (if verbalized by the patient): Female Spiritual care concerns: No Agree to blood products: Yes Anes - Eval Final PreProcedure Day of Procedure 06/17/23 08:24 Patient weight: normal Heart: regular rate and rhythm Lungs: decreased breath sounds Airway: Mallampati scale class II Neurological: alert and oriented Last oral intake: >/= 8 hours ASA classification: III Emergent: no Anesthetic plan: proceed Anesthesia type and monitoring: general GIVS and standard monitoring Results Review: All pre-operative results and documents have been reviewed as part of the pre-operative evaluation. Informed Consent: The patient's anesthetic plan and its attendant risks and benefits were discussed with the patient/family/POA. Questions were solicited and answers provided to the satisfaction of the patient/family/POA.
--- NOTE | 2023-06-17 08:53 | PM.HPGS ---
History of Present Illness History of Present Illness Consent: Risks, benefits, and alternatives have been discussed and questions answered. Patient agrees to proceed with procedure. Chief complaint: hx of colon polyps, benign neoplasm of colon Narrative: Patrica Ospina is a 68 year old female with colon polyp in 2019, father had colon cancer Review of Systems Constitutional: Constitutional: Denies headache(s) and Denies weakness Eyes: Eyes: Denies blurry vision ENT: Reports Normal hearing present, Denies headache(s) and Denies neck pain Cardiovascular: Cardiovascular: Denies chest pain and Denies dyspnea Respiratory: Respiratory: Denies dyspnea Gastrointestinal: Gastrointestinal: Reports no additional gastrointestinal complaints Genitourinary: Genitourinary: Denies dysuria Musculoskeletal: Musculoskeletal: Denies neck pain Integumentary/Breasts: Skin/Breast: Denies dry skin Neurologic: Reports Normal hearing present, Denies headache(s) and Denies weakness Psychiatric: Psychiatric: Denies anxiety Endocrine: Endocrine: Denies change in body appearance Hematologic/Lymphatic: Hematologic/Lymphatic: Denies easy bleeding Allergic/Immunologic: Allergic/Immunologic: Denies urticaria PMFSH Past Medical History Medical History (Updated 06/17/23 @ 08:53 by Palmer Nguyen MD) Adenomatous colon polyp Anxiety Depression Encounter for immunization Essential hypertension Family history of colon cancer Ocular migraine Osteoporosis Surgical History Surgical History H/O colonoscopy Family History Family History Mother Acute myocardial infarction 66y/o Hypertension Heart disease Father Carcinoma of colon Hypertension Sibling Carcinoma of colon Social History Social History Smoking packs per day: 0.5 Smoking cigarettes per day: 10.0 Years smoked: 10 Smoking pack-years: 5.00 Smoking status: Former smoker Tobacco type: cigarettes Second hand tobacco smoke exposure: No Alcohol intake: current Drinks per week: 10 Alcohol use details: WINE Substance use: never Substance use type: does not use Lack of Transportation: No Lack of Food: Never True Current Housing: I Have Housing Concerned About Future Housing: No Difficulty Paying Gas/Electric Bills: No Difficulty Paying for Meds: No Currently Unemployed: No Education: Decline to Answer Difficulty w/ Childcare or Family Care: No Living arrangements: with family Occupation/Education: retired Gender identity (if verbalized by the patient): Female Spiritual care concerns: No Agree to blood products: Yes Meds Home Medications and Allergies Home Medications Medication Instructions Recorded Confirmed Type vitamins A,C,A-zbvl-sxagfi 4,296 1 cap PO BID #60 caps 01/24/20 06/03/23 Rx mcg-226 mg-90 mg capsule (PreserVision AREDS) cholecalciferol (vitamin D3) 50 50 mcg PO DAILY 05/10/20 06/03/23 History mcg (2,000 unit) capsule (Vitamin D3) magnesium 400 mg PO DAILY 05/10/20 06/03/23 History lisinopril 20 mg tablet 20 mg PO DAILY #90 tabs 02/12/23 06/03/23 Rx atorvastatin 20 mg tablet 20 mg PO DAILY #90 tabs 03/08/23 06/03/23 Rx duloxetine 20 mg capsule,delayed 20 mg PO DAILY #30 caps 04/29/23 06/03/23 Rx release alendronate 70 mg tablet 70 mg PO WEEKLY #12 tabs 06/07/23 Rx Allergies Allergy/AdvReac Type Severity Reaction Status Date / Time No Known Allergies Allergy Unknown Verified 06/17/23 07:53 Vital Signs Vital Signs - 24 hr 06/17/23 07:55 Temperature 97.1 F L Pulse Rate 74 Respiratory Rate 18 Blood Pressure 147/85 H Pulse Oximetry 98 Oxygen Delivery Room Air Exam Const: General: comfortable and no acute distress HENMT: Face
[2023-06-17 09:13] VITALS: BP 107/71; PULSE 76; RESP 14; O2SAT 99
[2023-06-17 09:23] VITALS: BP 143/83; PULSE 68; RESP 20; O2SAT 96
[2023-06-17 09:33] VITALS: BP 143/86; PULSE 63; RESP 16; O2SAT 99
== END 2023-06-17 09:37 | disposition home or self-care (01) ==
PROVIDERS: PCP Family Medicine; Visit Provider Internal Medicine Gastroenterology
PROC: 0DJD8ZZ Inspection of Lower Intestinal Tract, Via Natural or Artificial Opening Endoscopic (ICD-10-PCS; CPT 45378; principal; 2023-06-17 09:00)
DX: Z12.11 Encounter for screening for malignant neoplasm of colon (principal); K57.30 Diverticulosis of large intestine without perforation or abscess without bleeding; K64.8 Other hemorrhoids; Z86.010 Personal history of colon polyps; Z80.0 Family history of malignant neoplasm of digestive organs; I10 Essential (primary) hypertension; F41.9 Anxiety disorder, unspecified; F32.A Depression, unspecified; M81.0 Age-related osteoporosis without current pathological fracture; Z87.891 Personal history of nicotine dependence
CPT/HCPCS: G0105; J2704; J7120

== ENCOUNTER 2023-09-16 13:05 | Outpatient (CLI) | payer MEDICARE, SELFPAY ==
--- NOTE | ~2023-09-16 | DEXA_ITS ---
Bone Density Report Name: CONNIE SILVA Age: 68 Sex: Female Ethnicity: White Date of : 1955 Indication: osteopenia; postmenopausal Referring Provider: BHAKTI LENNON Study: Bone densitometry was performed. Exam Date: September 16, 2023 Accession number: [id number] Bone Density: Region BMD T-score Z-score Classification AP Spine (L1-L4) 0.863 -1.7 0.4 Osteopenia Femoral Neck (Left) 0.619 -2.1 -0.3 Osteopenia Total Hip (Left) 0.911 -0.3 1.2 Normal Femoral Neck (Right) 0.623 -2.0 -0.3 Osteopenia Total Hip (Right) 0.882 -0.5 1.0 Normal Total Hip Mean 0.897 -0.4 1.1 Normal World Health Organization criteria for BMD impression classify patients as: Normal (T-score at or above -1.0), Osteopenia (T-score between -1.0 and -2.5), or Osteoporosis (T-score at or below -2.5). 10-year Fracture Risk(1): Major Osteoporotic Fracture 12% Hip Fracture 2.2% Reported Risk Factors: [place] (), Neck BMD=0.623, BMI=28.4 (1) FRAX(R) Version 3.08. Fracture probability calculated for an untreated patient. Fracture probability may be lower if the patient has received treatment. Previous Exams: Region Exam Age BMD T-score BMD Change BMD Change Date g/cm2 vs Baseline vs Previous AP Spine(L1-L4) 09/16/2023 68 0.863 -1.7 -0.116* -0.043* 07/01/2013 58 0.905 -1.3 -0.073* -0.073* 06/20/2005 50 0.978 -0.6 Total Hip(Left) 09/16/2023 68 0.911 -0.3 -0.032* -0.031* 07/01/2013 58 0.942 0.0 -0.001 -0.001 06/20/2005 50 0.943 0.0 Total Hip(Right) 09/16/2023 68 0.882 -0.5 -0.039* 0.022 07/01/2013 58 0.861 -0.7 -0.061* -0.061* 06/20/2005 50 0.922 -0.2 *Denotes significance at 95% confidence level, LSC for AP Spine = 0.022 g/cm2, LSC for Total Hip = 0.027 g/cm2 Clinical Information Provided by Patient: Has used the following medications: Fosamax (i.e. alendronate), Vitamin D Patient maximum height was 63 Menopause Age: 59 Drinks caffeinated beverages Onset of menses at age 16 Number of children 3 Impression: The patient has low bone mass, based on the Left Femoral Neck T-score. The patient has an estimated ten-year risk of hip fracture of 2.2% and an estimated ten-year risk of major fracture of 12%, based on the WHO FRAX algorithm. The BMD for the AP Spine(L1-L4) decreased, changing by -0.043 since the last DXA exa
== END 2023-09-16 13:06 ==
LOC: MICIMG 13:06
PROVIDERS: PCP Physician Assistant; Visit Provider Physician Assistant
DX: Z78.0 Asymptomatic menopausal state (principal); M85.88 Other specified disorders of bone density and structure, other site; M85.852 Other specified disorders of bone density and structure, left thigh; M85.851 Other specified disorders of bone density and structure, right thigh
CPT/HCPCS: 77080

== ENCOUNTER 2023-12-08 10:15 | Outpatient (CLI) | payer MEDICARE, SELFPAY ==
[2023-12-08 11:20] LABS: Alanine Aminotransferase 19 U/L (6-35); Albumin Level 3.9 g/dL (3.5-5.1); Alkaline Phosphatase 59 U/L (38-126); Anion Gap 4 mmol/L (4-12); Aspartate Amino Transferase 25 U/L (14-36); Bilirubin,Total 0.6 mg/dL (0.2-1.3); Blood Urea Nitrogen 16 mg/dL (7-17); Calcium 8.7 mg/dL (8.4-10.2); Carbon Dioxide 30 mmol/L (22-30); Chloride 106 mmol/L (98-107); Cholesterol 155 mg/dL (0-200); Estimated Glomerular Filt Rate > 60; Glucose 107 mg/dL (65-110); HDL Direct 50 mg/dL; Potassium 4.6 mmol/L (3.4-5.0); Sodium 140 mmol/L (137-145); Triglycerides 111 mg/dL (<150)
[2023-12-08 11:31] LABS: LDL Cholesterol Direct 91 mg/dL
== END 2023-12-08 10:16 | disposition home or self-care (01) ==
LOC: ANHLAB 10:17
PROVIDERS: PCP Family Medicine; Visit Provider Physician Assistant Medical
DX: E78.2 Mixed hyperlipidemia (principal); Z00.00 Encounter for general adult medical examination without abnormal findings; F41.9 Anxiety disorder, unspecified
CPT/HCPCS: 36415; 80053; 80061; 84443

== ENCOUNTER 2024-06-14 08:39 | Outpatient (CLI) | payer MEDICARE, SELFPAY ==
[2024-06-14 09:29] LABS: Alanine Aminotransferase 16 U/L (6-35); Albumin Level 3.2 g/dL (3.5-5.1); Alkaline Phosphatase 53 U/L (38-126); Anion Gap 0 mmol/L (4-12); Aspartate Amino Transferase 21 U/L (14-36); Bilirubin,Total 0.5 mg/dL (0.2-1.3); Blood Urea Nitrogen 16 mg/dL (7-17); Calcium 8.8 mg/dL (8.4-10.2); Carbon Dioxide 30 mmol/L (22-30); Chloride 106 mmol/L (98-107); Cholesterol 254 mg/dL (0-200); Estimated Glomerular Filt Rate > 60; Glucose 123 mg/dL (65-110); HDL Direct 56 mg/dL; Potassium 4.6 mmol/L (3.4-5.0); Sodium 136 mmol/L (137-145); Triglycerides 161 mg/dL (<150)
[2024-06-14 09:39] LABS: LDL Cholesterol Direct 172 mg/dL
[2024-06-14 09:50] LABS: Free T4 Free Thyroxine 0.95 ng/dL (0.78-2.19)
[2024-06-15 10:48] LABS: Creatinine, Random Urine 118 mg/dL (20-275); Total Prot/Creat ratio mg/mg 0.068 (0.024-0.184); Total Protein/Creatinine Ratio 68 mg/g creat (24-184)
== END 2024-06-14 08:40 | disposition home or self-care (01) ==
PROVIDERS: PCP Family Medicine; Visit Provider Student in an Organized Health Care Education/Training Program
DX: E78.5 Hyperlipidemia, unspecified (principal); I10 Essential (primary) hypertension; R53.83 Other fatigue; R80.9 Proteinuria, unspecified
CPT/HCPCS: 36415; 80053; 80061; 82570; 84156; 84166; 84439; 84443

== ENCOUNTER 2024-09-19 12:20 | Outpatient (CLI) | payer MEDICARE, SELFPAY ==
--- NOTE | ~2024-09-19 | MM_ITS ---
EXAMINATION: MM screening [facility] BI w bob HISTORY: Screening TECHNIQUE: Craniocaudal and mediolateral oblique 3-D tomosynthesis images were obtained and synthetic 2-D images were generated. CAD analysis was submitted and interpreted. COMPARISON: 06/04/2023 and dating back to 09/26/2019 BREAST PARENCHYMAL COMPOSITION: There are scattered areas of fibroglandular density. FINDINGS: Punctate calcifications are detected bilaterally, stable and benign in appearance. Stable parenchymal pattern without suspicious microcalcifications, architectural distortion, discrete masses or significant asymmetry. IMPRESSION: 1. No mammographic evidence of malignancy. 2. Recommend routine screening mammography in one year. BI-RADS Category 2: Benign finding(s). Reviewed, dictated and finalized at location A.
== END 2024-09-19 12:21 | disposition home or self-care (01) ==
LOC: MICIMG 12:21
PROVIDERS: PCP Family Medicine; Visit Provider Family Medicine
DX: Z12.31 Encounter for screening mammogram for malignant neoplasm of breast (principal)
CPT/HCPCS: 77063; 77067

== ENCOUNTER 2024-12-29 08:56 | Outpatient (CLI) | payer MEDICARE, SELFPAY ==
--- OUTSIDE RECORDS SUMMARY | 2024-12-29 09:00 | XMS_ITS | Clinical Summary ---
Author Organization [facility] Address [address] [address] Phone Care Team Providers Care Jewelry Model Maker Name Role Phone Radha Schuster MD Primary Care Provider [phone] Social History Tobacco Use Types Packs/Day Years Used Date Smoking Tobacco: Never Assessed Comments Unknown Sex and Gender Information Value Date Recorded Sex Assigned at Not on file Legal Sex Female 5:37 PM CDT Gender Identity Not on file Sexual Orientation Not on file Plan of Treatment Health Maintenance Due Date Last Done Comments DEXA Bone Density 1955 Hepatitis C Virus (HCV) Screening 1955 TdaP Immunization 1955 Cologuard 2004 Immunochemical Fecal Occult Blood 2004 Mammogram 2004 Pneumococcal Immunization (5 0+ years) (1 of 1 - PCV) 2004 Zoster Immunization (1 of 2) 2004 Colonoscopy 05/17/2023 05/17/2020, 12/28/2014 Colorectal Cancer Screening 05/17/2023 Influenza Immunization (#1) 2024 03/28/2020 SARS-COV-2 Immunization (2 - season) 2024 02/06/2021 Respiratory Syncytial Virus (RSV) Immunization (Adult) (1 - 1-dose 75+ series) 2029 Hepatitis B Immunization Aged Out No longer eligible based on patient's age to complete this topic Meningococcal Immunization (ACWY) Aged Out No longer eligible b ased on patient's age to complete this topic Rotavirus Immunization Aged Out No lo nger eligible based on patient's age to complete this topic Procedures Procedure Name Priority Date/Time Associated Diagnosis Comments HM COLONOSCOPY Routine 05/17/2020 from Last 3 Months or Most Recently Relevant to Health Maintenance Results * HM COLONOSCOPY (05/17/2020) Jak Oneill DO PROCEDURE/MINOR SURGICAL ORDERA BLES Final Result from Last 3 Months or Most Recently Relevant to Health Maintenance Insurance MEDICARE [facility] Care Teams Jewelry Model Maker Relationship Specialty Start Date End Date Radha Schuster MD [address] [place] [address] PCP - General Family Medicine 04/04/20
--- OUTSIDE RECORDS SUMMARY | 2024-12-29 09:00 | XMS_ITS | Referral Summary ---
Author Organization [facility] [employer] Address [address] [place] [address] Care Team Providers Care Lab Aide Name Role Phone Radha Schuster MD Primary Care Provider [phone] Allergies No known active allergies Medications alendronate (FOSAMAX) 70 mg tablet TAKE 1 TABLET BY MOUTH WEEKLY 3 Active atorvastatin (LIPITOR) 20 mg tablet Take 1 tablet (20 mg total) by mouth daily [address] (CYMBALTA) 20 mg capsule Take by mouth daily 3 Active lisinopriL (PRINIVIL,ZESTRIL ) 20 mg tablet Take 1 tablet (20 mg total) by mouth daily 3 Active cholecalciferol 400 unit capsule Act rene magnesium gluconate 200 mg tabletIndications :hypomagnesemia 2 tablets (400 mg total) Active vitamins A,C,E-ibtd-xgsudi (OCUVITE) 2,148 mcg-113 mg-45 mg-17.4mg tablet 1 tablet Act rene predniSONE (DELTASONE) 10 mg tabletIndications :Mixed conductive and sensorineural hearing loss of left ear with restricted hearing of right ear 2 tablets twice daily for 5 days, then 2 tablets daily for 3 days, then 1 tablet daily for 3 days. 29 tablet 3 Active fluticasone propionate (FLONASE) 50 mcg/actuation nasal sprayIndications: Mixed conductive and sensorineural hearing loss of left ear with restricted hearing of right ear Administer 2 sprays into each nostril daily 1 each 2 3 Active Active Problems Problem Noted Date Diagnosed Date Tinnitus of both ears 01/12/2023 Mixed conductive and sensori neural hearing loss of left ear with restricted hearing of right ear 01/12/2023 Impacted cerumen of right ear 01/12/2023 Social History Tobacco Use Types Packs/Day Years Used Date Smoking Tobacco: Former Cigarettes Smokeless Tobacco: Never Tobacco Cessation:Counseling Given: Not Answered Comments Unknown Sex and Gender Information Value Date Recorded Sex Assigned at Not on file 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 Gender Identity Not on file Sexual Orientation Not on file Last Filed Vital Signs Vital Sign Reading Time Taken Comments Blood Pressure - - Pulse - - Temperature - - Respiratory Rate 20 01/12/2023 2:30 PM CDT Oxygen Saturation - - Inhaled Oxygen Concentration - - Weight 68 kg (149 lb 14.6 oz) 01/12/2023 2:30 PM CDT Height 157.5 cm (5' 2) 01/12/2023 2:30 PM CDT Body Mass Index 27.42 01/12/2023 2:30 PM CDT Plan of Treatment Not on file [place] [address] [address] [id number] Care Teams Lab Aide Relationship Specialty Start Date End Date Radha Schuster MD PCP - General Family Medicine 6/8/23
--- OUTSIDE RECORDS SUMMARY | 2024-12-29 09:00 | XMS_ITS | Clinical Summary ---
Author Organization [facility] Address [address] [place] [address] Care Team Providers Care Level Vial Sealer Name Role Phone Radha Schuster MD Primary Care Provider [phone] Allergies No known active allergies Social History Tobacco Use Types Packs/Day Years Used Date Smoking Tobacco: Former Cigarettes Smokeless Tobacco: Never Tobacco Cessation:Counseling Given: Not Answered Alcohol Use Standard Drinks/Week Comments Yes 15 (1 standard drink = 0.6 oz pu re alcohol) Comments No Sex and Gender Information Value Date Recorded Sex Assigned at Not on file Legal Sex Female 1:43 PM HEAD IRRIGATOR Gender Identity Not on file Sexual Orientation Not on file Last Filed Vital Signs Vital Sign Reading Time Taken Comments Blood Pressure 158/72 06/17/2024 3:30 PM HEAD IRRIGATOR Pulse 78 06/17/2024 3:30 PM HEAD IRRIGATOR Temperature 36.4 C (97.5 F) 06/17/2024 1:47 PM HEAD IRRIGATOR Respiratory Rate 15 06/17/2024 3:30 PM HEAD IRRIGATOR Oxygen Saturation 100% 06/17/2024 3:30 PM HEAD IRRIGATOR Inhaled Oxygen Concentration - - Weight 70.9 kg (156 lb 4.9 oz) 06/17/2024 1:47 P M HEAD IRRIGATOR Height 157.5 cm (5' 2) 06/17/2024 1:47 PM HEAD IRRIGATOR Body Mass Index 28.59 06/17/2024 1:47 PM HEAD IRRIGATOR Plan of Treatment Health Maintenance Due Date Last Done Comments Colorectal Cancer Screening Colonoscopy (10 Years) 1954 Hepatitis C 1972 DTaP, Tdap and Td Vaccines ( 1 - Tdap) 1973 Mammogram Screening 1994 Pneumococcal Vaccine: 50+ Ye ars (1 of 1 - PCV) 2004 Zoster Vaccines (1 of 2) 2004 Annual Medicare Wellness Visit 2019 Dexa Scan (General) 2019 COVID-19 Vaccine ( - 2023-2 5 season) 2024 RSV Immunization or 60+ Years (1 - 1-dose 75+ series) 2029 Meningococcal B Vaccine Aged Out No l onger eligible based on patient's age to complete this topic Meningococcal Vaccine Aged Out No lila whitley eligible based on patient's age to complete this topic RSV Immunizations Under 20 Months Aged Out No longer eligible based on patient's age to complete this topic Insurance [facility] Care Teams Level Vial Sealer Relationship Specialty Start Date End Date Radha Schuster MD [address] [place] [address] PCP - General FAMILY PRACTICE 06/17/24
--- OUTSIDE RECORDS SUMMARY | 2024-12-29 09:00 | XMS_ITS | Continuity of Care Document ---
Author Organization [facility] Address [address] [place] [address] Phone Care Team Providers Care Corporate Security Officer Name Role Phone Brito OD, Jak Unavailable Unavailable Advance Directives Directive Yes / No Effective Date File Name No Information Encounters Encounter Description Practice Location Reason(s) For Visit Diagnoses Date Provider Providers Copied on Encounter [facility], [address], [place], [place], [id number], [place] tel:[phone] [facility] No Information 6-200 0 Brito OD Jak. [address] , [address], [place], [address], [place]. tel:[phone] Family History Family Member Type Diagnosis Age At Onset No Information Payers Payer name Insurance type Covered green party ID Authoriza tion(s) No Information Social History Type Description Quantity Date Captured Comments Sex Female Smoking Status No Information Chief Complaint And Reason For Visit No Information Reason For Referral Reason For Referral No Information History Of Present Illness Encounter Date Complaint History Of Prese nt Illness No Information Functional Status Date Functional Assessmen t No Information Instructions Date Instruction Additional Infor mation No Information Assessments Type Assessment Date No Information Patient Care Teams Name Effective Dates (start - stop) Status Members No Information
--- OUTSIDE RECORDS SUMMARY | 2024-12-29 09:00 | XMS_ITS | Clinical Summary ---
Author Organization [facility] [employer] Address [address] [place] [address] Care Team Providers Care Metal Forger'S Assistant Name Role Phone Radha Schuster MD Primary Care Provider [phone] Allergies No known active allergies Medications alendronate [...] 2 tablets (400 mg total) Active vitamins A,C,U-qfgq-arqszp (OCUVITE) 2,148 mcg-113 mg-45 mg-17.4mg tablet 1 [...] 01/12/2023 Impacted cerumen of right ear 01/12/2023 Medical History Medical History Date Comments Anxiety Depression HL (hearing loss) Family History Medical History Relation Name Comments Cancer Father Heart disease Mother Relation Name Status Comments Father Mother Social History Tobacco Use Types Packs/Day Years Used Date Smoking Tobacco: Former Cigarettes Smokeless Tobacco: Never Tobacco Cessation:Counseling Given: Not Answered Comments Unknown Sex and Gender Information Value Date Recorded Sex Assigned at Not on file 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 Gender Identity Not on file Sexual Orientation Not on file Obstetrics History Last Filed Vital Signs Vital Sign Reading [...] 01/12/2023 2:30 PM CDT Plan of Treatment Health Maintenance Due Date Last Done Comments Breast Cancer Screening-Mammogram 1955 Colon Cancer Screening-Colonoscopy 1955 Depression Screening 1955 Fall Risk Assessment 1955 Hepatitis C Screening 1955 Osteoporosis Screening-Bone Density Scan 1955 DTaP/Tdap/Td Vaccine (1 - Tdap) 1965 Hepatitis B Screening 1972 Pneumococcal vaccine 65+ (1 of 1 - PCV) 2004 Well Visit 65+ 2019 Covid-19 Vaccine (2 - season) 02/28/202404/2021 Influenza Vaccine (Season Ended) 2025 04/21/2022, 04/17/2021, 03/28/2020 Zoster Vaccine Completed 11/23/2021, 07/08/2021 Insurance [address] [id number] Care Teams Metal Forger'S Assistant Relationship Specialty Start Date End Date Radha Schustre MD PCP - General Family Medicine 12/04/22
[2024-12-29 09:20] LABS: Hematocrit 41.5 % (37.0-47.0); Hemoglobin 13.4 g/dL (12.0-15.0); Immature Granulocyte Percent A 0.2 % (0-0.5); Lymphocytes Absolute Auto 1.65 K/mm3 (0.9-3.2); Mean Corpuscular HGB Conc 32.3 g/dl (32-36); Mean Corpuscular Hemoglobin 30.1 pg (26-34); Mean Corpuscular Volume 93.3 fl (80-100); Nucleated Red Blood Cells Absolute Auto 0.000 K/mm3 (0.0-0.012); Nucleated Red Blood Cells Perc 0.0 % (0.0-0.2); Platelet Count Result 277 k/mm3 (150-375); Red Blood Count 4.45 M/mm3 (4.2-5.4); White Blood Count 4.9 K/mm3 (4.5-10.0)
[2024-12-29 09:31] LABS: Alanine Aminotransferase 17 U/L (6-35); Albumin Level 4.2 g/dL (3.5-5.1); Alkaline Phosphatase 57 U/L (38-126); Anion Gap 8 mmol/L (4-12); Aspartate Amino Transferase 24 U/L (14-36); Bilirubin,Total 0.5 mg/dL (0.2-1.3); Blood Urea Nitrogen 19 mg/dL (7-17); Calcium 8.9 mg/dL (8.4-10.2); Carbon Dioxide 26 mmol/L (22-30); Chloride 105 mmol/L (98-107); Cholesterol 172 mg/dL (0-200); Estimated Glomerular Filt Rate > 60; Glucose 125 mg/dL (65-110); HDL Direct 53 mg/dL; Potassium 4.4 mmol/L (3.4-5.0); Sodium 139 mmol/L (137-145); Total Protein 7.0 g/dL (6.3-8.2); Triglycerides 99 mg/dL (<150)
[2024-12-29 09:50] LABS: Free T4 Free Thyroxine 0.94 ng/dL (0.78-2.19)
[2024-12-29 09:51] LABS: Hemoglobin A1C 6.2 % (<5.7)
[2024-12-29 10:05] LABS: Thyroid Stimulating Hormone 1.290 uIU/mL (0.465-4.680)
== END 2024-12-29 08:57 | disposition home or self-care (01) ==
LOC: ANHLAB 08:58
PROVIDERS: PCP Family Medicine; Visit Provider Student in an Organized Health Care Education/Training Program
DX: E78.5 Hyperlipidemia, unspecified (principal); I10 Essential (primary) hypertension; E55.9 Vitamin D deficiency, unspecified; R73.03 Prediabetes; F41.9 Anxiety disorder, unspecified; F32.9 Major depressive disorder, single episode, unspecified; I49.3 Ventricular premature depolarization; M81.8 Other osteoporosis without current pathological fracture; G47.33 Obstructive sleep apnea (adult) (pediatric); R53.83 Other fatigue
CPT/HCPCS: 36415; 80053; 80061; 82306; 83036; 84439; 84443; 85025

== ENCOUNTER 2025-01-30 01:12 | Day surgery (SDC) | payer MEDICARE, SELFPAY ==
[2025-01-19 10:08] VITALS: BMI 27.5
--- OUTSIDE RECORDS SUMMARY | 2025-01-30 01:15 | XMS_ITS | Clinical Summary ---
Author Organization [facility] [employer] Address [address] [place] [address] Care Team Providers Care Cnc Mechanic Name Role Phone Radha Schuster MD Primary Care Provider [phone] Allergies No known active allergies Medications alendronate [...] 2 tablets (400 mg total) Active vitamins A,C,P-hvkh-nblxis (OCUVITE) 2,148 mcg-113 mg-45 mg-17.4mg tablet 1 [...] 01/12/2023 Impacted cerumen of right ear 01/12/2023 Encounters Date Type Department Care Team Description 01/16/2025 10:30 AM CDT Procedure visit 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
--- OUTSIDE RECORDS SUMMARY | 2025-01-30 01:15 | XMS_ITS | Referral Summary ---
Author Organization [address] Address [address] [place] [address] Care Team Providers Care Administrator Health Care Facility Name Role Phone Radha Schuster MD Primary Care Provider [phone] Encounters Date Type Department Care Team Description 01/16/2025 10:30 AM CDT Procedure visit [facility] Otolaryngology [address] [place] [id number] Carolyn Harding Mixed conductive and sensorineural hearing loss of left ear with restricted hearing of right ear (Primary Dx) from Last 3 Months Allergies No known active allergies Medications alendronate [...] 2 tablets (400 mg total) Active vitamins A,C,I-mfqh-zskxlj (OCUVITE) 2,148 mcg-113 mg-45 mg-17.4mg tablet 1 [...] on file Legal Sex Female 8:04 PM RADIATION OFFICER Gender Identity Not on file Sexual Orientation [...] Treatment Not on file Insurance MEDICARE ADVANTAGE [facility] MEDICARE Address: [facility] [address] [place] [address] [address] [id number] Care Teams Administrator Health Care Facility Relationship Specialty Start Date End Date Radha Schuster MD PCP - General Family Medicine 12/04/22
--- OUTSIDE RECORDS SUMMARY | 2025-01-30 01:15 | XMS_ITS | Clinical Summary ---
Author Organization [facility] Address [address] [address] Phone Care Team Providers Care Medical Technologist Microbiology Name Role Phone Radha Schuster MD Primary Care Provider [phone] Social History Tobacco Use Types Packs/Day Years Used Date Smoking Tobacco: Never Assessed Comments Unknown Sex and Gender Information Value Date Recorded Sex Assigned at Not on file Legal Sex Female 5:37 PM CDT Gender Identity Not on file Sexual Orientation Not on file Plan of Treatment Health Maintenance Due Date Last Done Comments Hepatitis C Virus (HCV) Screening 1955 TdaP Immunization 1955 Cologuard 1999 Immunochemical Fecal Occult Blood 1999 Pneumococcal Immunization (5 0+ years) (1 of 1 - PCV) 2004 Zoster Immunization (1 of 2) 2004 Colonoscopy 05/17/2023 05/17/2020, 12/28/2014 Colorectal Cancer Screening 05/17/2023 SARS-COV-2 Immunization ( - season) 2024 02/06/2021 Influenza Immunization (#1) 2025 03/28/2020 Respiratory Syncytial Virus (RSV) Immunization (Adult) (1 - 1-dose 75+ series) 2029 Hepatitis B Immunization Aged Out No longer eligible based on patient's age to complete this topic Human Papillomavirus (HPV) Immunization Aged Out No longer eligible b ased [...] Recently Relevant to Health Maintenance Insurance MEDICARE [facility] Care Teams Medical Technologist Microbiology Relationship Specialty Start Date End Date Radha Schuster MD [address] [place] [address] PCP - General Family Medicine 04/04/20
--- OUTSIDE RECORDS SUMMARY | 2025-01-30 01:15 | XMS_ITS | Clinical Summary ---
Author Organization [facility] Address [address] [place] [address] Care Team Providers Care Airborne And Air Delivery Specialist Name Role Phone Radha Schuster MD Primary Care Provider [phone] Allergies No known active allergies Social History Tobacco Use Types Packs/Day Years Used Date Smoking Tobacco: Former Cigarettes Smokeless Tobacco: Never Tobacco Cessation:Counseling Given: Not Answered Alcohol Use Standard Drinks/Week Comments Yes 15 (1 standard drink = 0.6 oz pu re alcohol) Comments No Sex and Gender Information Value Date Recorded Sex Assigned at Not on file Legal Sex Female 1:43 PM BOARD CERTIFIED MUSIC THERAPIST Gender Identity Not on file Sexual Orientation Not on file Last Filed Vital Signs Vital Sign Reading Time Taken Comments Blood Pressure 158/72 06/17/2024 3:30 PM BOARD CERTIFIED MUSIC THERAPIST Pulse 78 06/17/2024 3:30 PM BOARD CERTIFIED MUSIC THERAPIST Temperature 36.4 C (97.5 F) 06/17/2024 1:47 PM BOARD CERTIFIED MUSIC THERAPIST Respiratory Rate 15 06/17/2024 3:30 PM BOARD CERTIFIED MUSIC THERAPIST Oxygen Saturation 100% 06/17/2024 3:30 PM BOARD CERTIFIED MUSIC THERAPIST Inhaled Oxygen Concentration - - Weight 70.9 kg (156 lb 4.9 oz) 06/17/2024 1:47 P M BOARD CERTIFIED MUSIC THERAPIST Height 157.5 cm (5' 2) 06/17/2024 1:47 PM BOARD CERTIFIED MUSIC THERAPIST Body Mass Index 28.59 06/17/2024 1:47 PM BOARD CERTIFIED MUSIC THERAPIST Plan of Treatment Health Maintenance Due Date [...] patient's age to complete this topic Insurance [facility] Care Teams Airborne And Air Delivery Specialist Relationship Specialty Start Date End Date Radha Schuster MD [address] [place] [address] PCP - General FAMILY PRACTICE 06/17/24
--- NOTE | 2025-01-30 07:29 | P.PNAN_ITS ---
Anes - Initial Pre Proc Eval Procedure: Operation Date: 01/30/25 11:00 Proposed Procedures p Esophagogastroduodenoscopy - Palmer Nguyen MD Date/Time: 01/30/25 07:29 Surgeon: Palmer Nguyen MD Pre Op Diagnosis: Dysphagia, unspecified Patient Data Age: 69 Gender: F Height: 1.57 m Weight: 68.3 kg Allergies Allergy/AdvReac Type Severity Reaction Status Date / Time No Known Allergies Allergy Unknown Verified 01/19/25 10:06 Home Medications ?Medication ?Instructions ?Recorded ?Confirmed ?Type vitamins A,C,S-kstd-sfxrff 4,296 1 cap PO BID #60 caps 01/24/20 01/30/25 Rx mcg-226 mg-90 mg capsule (PreserVision AREDS) cholecalciferol (vitamin D3) 50 50 mcg PO DAILY 05/10/20 01/30/25 History mcg (2,000 unit) capsule (Vitamin D3) magnesium 400 mg PO DAILY 05/10/20 01/30/25 History duloxetine 20 mg capsule,delayed 20 mg PO DAILY #90 caps 03/06/24 01/30/25 Rx release amlodipine 2.5 mg tablet (Norvasc) 2.5 mg PO DAILY #90 tabs 10/23/24 01/30/25 Rx lisinopril 20 mg tablet See Rx Instructions .Route 11/11/24 01/30/25 Rx .COMPLEX #90 tabs rosuvastatin 5 mg tablet 5 mg PO DAILY #90 tabs 11/13/24 01/30/25 Rx alendronate 70 mg tablet 70 mg PO WEEKLY #12 tabs 12/18/24 01/30/25 Rx amoxicillin 875 mg-potassium 1 tablet PO BID #14 tabs 01/13/25 01/30/25 Rx clavulanate 125 mg tablet Patient hx anesthesia problems: none Family hx anesthesia problems: none Results Review: All pre-operative results and documents have been reviewed as part of the pre- operative evaluation. [facility] Past Medical History Medical History (Updated 01/30/25 @ 07:29 by Alirio Arenas DO) Restless legs syndrome Dyslipidemia Family history of colon cancer Osteoporosis Encounter for immunization Depression Anxiety Essential hypertension Adenomatous colon polyp Ocular migraine Surgical History Surgical History H/O colonoscopy Family History Family History Mother Acute myocardial infarction 66y/o Hypertension Heart disease Father Carcinoma of colon Hypertension Sibling Carcinoma of colon Social History Social History Smoking packs per day: 1 Smoking cigarettes per day: 20.0 Years smoked: 4 Smoking pack-years: 4.00 Smoking status: Former smoker Tobacco type: cigarettes Second hand tobacco smoke exposure: No Additional smoking assessment comments: ONLY SMOKED IN HIGH SCHOOL Alcohol intake: current Drinks per week: 9 Alcohol use details: MIXTURE OF BEER, WINE, HARD LIQUOR Substance use: never Substance use type: does not use Lack of Transportation: No Lack of Food: Never True Current Housing: I Have Housing Concerned About Future Housing: No Difficulty Paying Gas/Electric Bills: No Difficulty Paying for Meds: No Currently Unemployed: No Education: Decline to Answer Difficulty w/ Childcare or Family Care: No Living arrangements: with family Occupation/Education: retired Gender identity (if verbalized by the patient): Female Spiritual care concerns: No Agree to blood products: Yes Anes - Eval Final PreProcedure Day of Procedure 01/30/25 07:29 Patient weight: overweight Heart: regular rate and rhythm Lungs: clear to auscultation Airway: Mallampati scale class II Neurological: alert and oriented Last oral intake: >/= 8 hours ASA classification: II Emergent: no Anesthetic plan: proceed Anesthesia type and monitoring: general GIVS and standard monitoring Results Review: All pre-operative results and documents have been reviewed as part of the pre- operative evaluation. Informed Consent: The patient's anesthetic plan and its attendant risks and benefits were discussed with the patient/family/POA. Questions were solicited and answers provided to the satisfaction of the patient/family/POA.
[2025-01-30 09:16] VITALS: BP 147/81; PULSE 66; RESP 18; TEMP 36.8; O2SAT 100
[2025-01-30] MEDS: LACTATED RINGERS 1,000 ML 150 ML IV CONT (09:24)
--- NOTE | 2025-01-30 10:11 | PM.HPGS ---
History of Present Illness History of Present Illness Consent: Risks, benefits, and alternatives have been discussed and questions answered. Patient agrees to proceed with procedure. Chief complaint: Dysphagia, unspecified Narrative: Patrica Ospina is a 69 year old female with cough and sensation discomfort at throat Review of Systems Review of Systems: All systems reviewed & are unremarkable except as noted in HPI and below PMFSH Past Medical History Medical History (Updated 01/30/25 @ 10:12 by Palmer Nguyen MD) Cough Restless legs syndrome Dyslipidemia Family history of colon cancer Osteoporosis Encounter for immunization Depression Anxiety Essential hypertension Adenomatous colon polyp Ocular migraine Surgical History Surgical History H/O colonoscopy Family History Family History Mother Acute myocardial infarction 66y/o Hypertension Heart disease Father Carcinoma of colon Hypertension Sibling Carcinoma of colon Social History Social History Smoking packs per day: 1 Smoking cigarettes per day: 20.0 Years smoked: 4 Smoking pack-years: 4.00 Smoking status: Former smoker Tobacco type: cigarettes Second hand tobacco smoke exposure: No Additional smoking assessment comments: ONLY SMOKED IN HIGH SCHOOL Alcohol intake: current Drinks per week: 9 Alcohol use details: MIXTURE OF BEER, WINE, HARD LIQUOR Substance use: never Substance use type: does not use Lack of Transportation: No Lack of Food: Never True Current Housing: I Have Housing Concerned About Future Housing: No Difficulty Paying Gas/Electric Bills: No Difficulty Paying for Meds: No Currently Unemployed: No Education: Decline to Answer Difficulty w/ Childcare or Family Care: No Living arrangements: with family Occupation/Education: retired Gender identity (if verbalized by the patient): Female Spiritual care concerns: No Agree to blood products: Yes Meds Home Medications and Allergies Home Medications ?Medication ?Instructions ?Recorded ?Confirmed ?Type vitamins A,C,T-jgmm-ywkjtb 4,296 1 cap PO BID #60 caps 01/24/20 01/30/25 Rx mcg-226 mg-90 mg capsule (PreserVision AREDS) cholecalciferol (vitamin D3) 50 50 mcg PO DAILY 05/10/20 01/30/25 History mcg (2,000 unit) capsule (Vitamin D3) magnesium 400 mg PO DAILY 05/10/20 01/30/25 History duloxetine 20 mg capsule,delayed 20 mg PO DAILY #90 caps 03/06/24 01/30/25 Rx release amlodipine 2.5 mg tablet (Norvasc) 2.5 mg PO DAILY #90 tabs 10/23/24 01/30/25 Rx lisinopril 20 mg tablet See Rx Instructions .Route 11/11/24 01/30/25 Rx .COMPLEX #90 tabs rosuvastatin 5 mg tablet 5 mg PO DAILY #90 tabs 11/13/24 01/30/25 Rx alendronate 70 mg tablet 70 mg PO WEEKLY #12 tabs 12/18/24 01/30/25 Rx amoxicillin 875 mg-potassium 1 tablet PO BID #14 tabs 01/13/25 01/30/25 Rx clavulanate 125 mg tablet Allergies Allergy/AdvReac Type Severity Reaction Status Date / Time No Known Allergies Allergy Unknown Verified 01/19/25 10:06 Vital Signs Vital Signs - 24 hr 01/30/25 09:16 Temperature 98.2 F Pulse Rate 66 Respiratory Rate 18 Blood Pressure 147/81 H Pulse Oximetry 100 Oxygen Delivery Room Air Exam Const: General: comfortable and no acute distress HENMT: Face/Nose/Sinus: Normal nares present Eyes: General: appearance normal, both eyes and all related structures Neck: Neck: no JVD Resp: Auscultation: clear to auscultation bilaterally Cardio: Rate: regular rate Rhythm: regular rhythm GI: Inspection: non-distended GI Palp: Yes Soft to palpation Skin: General skin exam: normal color Neuro: Speech: normal speech Extrem: General: normal to inspection Psych: Mental Status: mental status grossly normal Assessment and Plan Assessment and plan (1) Cough: Code(s): R05.9 - Cough, unspecified Status: Acute Assessment and Plan: egd with bx
--- NOTE | 2025-01-30 10:16 | S_PTH ---
PATIENT: Patrica Ospina LOC: [facility]ica#:[id number] AGE/SX: 69/F ROOM: RE01/30/[address]: Palmer Nguyen MD : 1955 BED: DIS: 01/30/2025 SPEC #: [id number] RECD: 01/30/25 10:32 STATUS: DAQUAN REAhsan #: [id number] SUSANNA: 01/30/25 10:[address]: Palmer Nguyen DEPT: [facility] Surgical RECD BY: Renetta Gibson ENTERED: 01/30/25 10:32 SP TYPE: Surgical OTHR DR: Radha SchusterMD Tissues: A - Gastric Biopsy B - Esophageal Biopsy Procedures: Hematoxylin and Eosin Stain Gross and Microscopic Level 4
[2025-01-30 10:19] VITALS: BP 125/75; PULSE 67; RESP 19; O2SAT 99
[2025-01-30 10:29] VITALS: BP 124/71; PULSE 63; RESP 21; O2SAT 98
[2025-01-30 10:39] VITALS: BP 126/75; PULSE 60; RESP 17; O2SAT 98
== END 2025-01-30 10:45 | disposition home or self-care (01) ==
PROVIDERS: PCP Family Medicine; Referring Provider Student in an Organized Health Care Education/Training Program; Visit Provider Internal Medicine Gastroenterology
PROC: 0DJ08ZZ Inspection of Upper Intestinal Tract, Via Natural or Artificial Opening Endoscopic (ICD-10-PCS; CPT 43239; principal; 2025-01-30 11:00)
DX: K21.00 Gastro-esophageal reflux disease with esophagitis, without bleeding (principal); K22.10 Ulcer of esophagus without bleeding; K44.9 Diaphragmatic hernia without obstruction or gangrene; E78.5 Hyperlipidemia, unspecified; I10 Essential (primary) hypertension; M81.0 Age-related osteoporosis without current pathological fracture; G25.81 Restless legs syndrome; F32.A Depression, unspecified; F41.9 Anxiety disorder, unspecified; Z79.83 Long term (current) use of bisphosphonates; Z98.890 Other specified postprocedural states; Z87.891 Personal history of nicotine dependence; Z80.0 Family history of malignant neoplasm of digestive organs; Z82.49 Family history of ischemic heart disease and other diseases of the circulatory system
CPT/HCPCS: 43239; 88305; J2003; J2704; J7120

== ENCOUNTER 2025-06-09 00:49 | Day surgery (SDC) | payer MEDICARE, SELFPAY ==
[2025-06-07 10:18] VITALS: BMI 24.7
--- OUTSIDE RECORDS SUMMARY | 2025-06-09 00:53 | XMS_ITS | Clinical Summary ---
Author Organization [facility] Address [address] [place] [address] Care Team Providers Care Driver Retraining Instructor Name Role Phone Radha Schuster MD Primary Care Provider [phone] Allergies No known active allergies Social History Tobacco Use Types Packs/Day Years Used Date Smoking Tobacco: Former Cigarettes Smokeless Tobacco: Never Tobacco Cessation:Counseling Given: Not Answered Alcohol Use Standard Drinks/Week Comments Yes 15 (1 standard drink = 0.6 oz pu re alcohol) Comments No Sex and Gender Information Value Date Recorded Sex Assigned at Not on file Legal Sex Female 1:43 PM PATIENT INFORMATION COORDINATOR Gender Identity Not on file Sexual Orientation Not on file Last Filed Vital Signs Vital Sign Reading Time Taken Comments Blood Pressure 158/72 06/17/2024 3:30 PM PATIENT INFORMATION COORDINATOR Pulse 78 06/17/2024 3:30 PM PATIENT INFORMATION COORDINATOR Temperature 36.4 C (97.5 F) 06/17/2024 1:47 PM PATIENT INFORMATION COORDINATOR Respiratory Rate 15 06/17/2024 3:30 PM PATIENT INFORMATION COORDINATOR Oxygen Saturation 100% 06/17/2024 3:30 PM PATIENT INFORMATION COORDINATOR Inhaled Oxygen Concentration - - Weight 70.9 kg (156 lb 4.9 oz) 06/17/2024 1:47 P M PATIENT INFORMATION COORDINATOR Height 157.5 cm (5' 2) 06/17/2024 1:47 PM PATIENT INFORMATION COORDINATOR Body Mass Index 28.59 06/17/2024 1:47 PM PATIENT INFORMATION COORDINATOR Plan of Treatment Health Maintenance Due Date Last Done Comments Colorectal Cancer Screening Colonoscopy (10 Years) 1954 Hepatitis C 1972 DTaP, Tdap and Td Vaccines ( 1 - Tdap) 1973 Mammogram Screening 1994 Pneumococcal Vaccine: 50+ Ye ars (1 of 1 - PCV) 2004 Zoster Vaccines (1 of 2) 2004 Annual Medicare Wellness Visit 2019 Dexa Scan (General) 2019 COVID-19 Vaccine (2024-2 6 season) 2025 Influenza Adult (#1) 2025 RSV Immunization or 60+ Years (1 - 1-dose 75+ series) 2029 Hepatitis A Vaccines Aged Out No long er eligible based on patient's age to complete this topic Meningococcal B Vaccine Aged Out No l onger eligible based on patient's age to complete this topic Meningococcal Vaccine Aged Out No lila whitley eligible based on patient's age to complete this topic RSV Immunizations Under 20 Months Aged Out No longer eligible based on patient's age to complete this topic Insurance [employer] MEDICARE Care Teams Driver Retraining Instructor Relationship Specialty Start Date End Date Radha Schuster MD [address] [place] [address] PCP - General FAMILY PRACTICE 06/17/24
--- OUTSIDE RECORDS SUMMARY | 2025-06-09 00:53 | XMS_ITS | Clinical Summary ---
Author Organization [facility] [employer] Address [address] [email or web address] [address] Care Team Providers Care Sulfuric Acid Plant Operator Name Role Phone Radha Schuster MD Primary Care Provider [phone] Allergies No known active allergies Medications alendronate [...] 2 tablets (400 mg total) Active vitamins A,C,N-ctsk-gsaicn (OCUVITE) 2,148 mcg-113 mg-45 mg-17.4mg tablet 1 [...] on file Legal Sex Female 8:04 PM DETECTIVE INVESTIGATOR Gender Identity Not on file Sexual Orientation [...] 65+ 2019 Covid-19 Vaccine (2 - season) 02/27/202504/2021 Influenza Vaccine (#1) 2025 2, 04/17/2021, 03/28/2020 Zoster Vaccine Completed 11/23/2021, 07/08/2021 Insurance [facility] MEDICARE ADVANTAGE Care Teams Sulfuric Acid Plant Operator Relationship Specialty Start Date End Date Radha Schuster MD PCP - General Family Medicine 12/04/22
--- OUTSIDE RECORDS SUMMARY | 2025-06-09 00:53 | XMS_ITS | Clinical Summary ---
Author Organization [facility] Address [address] [address] Phone Care Team Providers Care Quality Systems Manager Name Role Phone Radha Schuster MD Primary Care Provider [phone] Social History Tobacco Use Types Packs/Day Years [...] 2004 Zoster Immunization (1 of 2) 2004 Medicare Initial AWV [id number] 03/29/2020 Colonoscopy 05/17/2023 05/17/2020, 12/28/2014 Colorectal Cancer Screening 05/17/2023 Influenza Immunization (#1) 2025 03/28/2020 SARS-COV-2 Immunization (2 - season) 2025 02/06/2021 Respiratory Syncytial Virus (RSV) Immunization (Adult) [...] Procedure Name Priority Date/Time Associated Diagnosis Comments COLONOSCOPY Routine 05/17/2020 from Last 3 Months or Most Recently Relevant to Health Maintenance Results * [facility] COLONOSCOPY (05/17/2020) Jak Oneill DO PROCEDURE/MINOR SURGICAL ORDERA BLES Final Result from Last 3 Months or Most Recently Relevant to Health Maintenance Insurance MEDICARE [facility] Care Teams Quality Systems Manager Relationship Specialty Start Date End Date Radha Schuster MD [address] [place] [address] PCP - General Family Medicine 04/04/20
[2025-06-09 07:31] VITALS: BP 154/84; PULSE 72; RESP 18; TEMP 36.6; O2SAT 100; BMI 26.7
[2025-06-09] MEDS: LACTATED RINGERS 1,000 ML 150 ML IV CONT (07:34)
--- NOTE | 2025-06-09 08:02 | WPDANESEPPF ---
Anes - Initial Pre Proc Eval Procedure: Operation Date: 06/09/25 08:30 Proposed Procedures p Esophagogastroduodenoscopy - Palmer Nguyen MD Date/Time: 06/09/25 08:02 Surgeon: Palmer Nguyen MD Pre Op Diagnosis: Gastro-esophageal reflux disease with esophagitis, Patient Data Age: 70 Gender: F Height: 1.57 m Weight: 66.4 kg Last Vital Signs Temp 36.6 C 06/09/25 07:31 Pulse 72 06/09/25 07:31 Resp 18 06/09/25 07:31 BP 154/84 H 06/09/25 07:31 Pulse Ox 100 06/09/25 07:31 O2 Del Method Room Air 06/09/25 07:31 Allergies Allergy/AdvReac Type Severity Reaction Status Date / Time No Known Allergies Allergy Unknown Verified 06/09/25 07:29 Home Medications ?Medication ?Instructions ?Recorded ?Confirmed ?Type vitamins A,C,Y-dqpo-oxdmcq 4,296 1 cap PO BID #60 caps 01/24/20 06/09/25 Rx mcg-226 mg-90 mg capsule (PreserVision AREDS) cholecalciferol (vitamin D3) 50 50 mcg PO DAILY 05/10/20 06/09/25 History mcg (2,000 unit) capsule (Vitamin D3) magnesium 400 mg PO DAILY 05/10/20 06/09/25 History amlodipine 2.5 mg tablet (Norvasc) 2.5 mg PO DAILY #90 tabs 10/23/24 06/09/25 Rx lisinopril 20 mg tablet See Rx Instructions .Route 11/11/24 06/09/25 Rx .COMPLEX #90 tabs omeprazole 40 mg capsule,delayed 40 mg PO DAILY #30 caps 01/30/25 06/09/25 Rx release duloxetine 20 mg capsule,delayed 20 mg PO DAILY #90 caps 02/07/25 06/09/25 Rx release rosuvastatin 5 mg tablet See Rx Instructions .Route 05/17/25 06/09/25 Rx .COMPLEX #90 tabs alendronate 70 mg tablet 70 mg PO WEEKLY #12 tabs 06/07/25 06/07/25 Rx Patient hx anesthesia problems: none Family hx anesthesia problems: none Results Review: All pre-operative results and documents have been reviewed as part of the pre-operative evaluation. [facility] Past Medical History Medical History Cough Restless legs syndrome Dyslipidemia Family history of colon cancer Osteoporosis Encounter for immunization Depression Anxiety Essential hypertension Adenomatous colon polyp Ocular migraine Surgical History Surgical History H/O colonoscopy Family History Family History Mother Acute myocardial infarction 66y/o Hypertension Heart disease Father Carcinoma of colon Hypertension Sibling Carcinoma of colon Social History Social History Smoking packs per day: 1 Smoking cigarettes per day: 20.0 Years smoked: 4 Smoking pack-years: 4.00 Smoking status: Never smoker Tobacco type: cigarettes Second hand tobacco smoke exposure: No Additional smoking assessment comments: ONLY SMOKED IN HIGH SCHOOL Alcohol intake: current Drinks per week: 9 Alcohol use details: occ Substance use: never Substance use type: does not use Lack of Transportation: No Lack of Food: Never True Current Housing: I Have Housing Concerned About Future Housing: No Difficulty Paying Gas/Electric Bills: No Difficulty Paying for Meds: No Currently Unemployed: No Education: Decline to Answer Difficulty w/ Childcare or Family Care: No Living arrangements: with family Occupation/Education: retired Gender identity (if verbalized by the patient): Female Spiritual care concerns: No Agree to blood products: Yes Anes - Eval Final PreProcedure Day of Procedure 06/09/25 08:02 Patient weight: overweight Heart: regular rate and rhythm Lungs: clear to auscultation Airway: Mallampati scale class II Neurological: alert and oriented Last oral intake: >/= 8 hours ASA classification: II Emergent: no Anesthetic plan: proceed Anesthesia type and monitoring: general GIVS and standard monitoring Results Review: All pre-operative results and documents have been reviewed as part of the pre-operative evaluation. Informed Consent: The patient's anesthetic plan and its attendant risks and benefits were discussed with the patient/family/POA. Questions were solicited and answers provided to the satisfaction of the patient/family/POA.
--- NOTE | 2025-06-09 08:08 | PM.HPGS ---
History of Present Illness History of Present Illness Consent: Risks, benefits, and alternatives have been discussed and questions answered. Patient agrees to proceed with procedure. Chief complaint: Gastro-esophageal reflux disease with esophagitis, Narrative: Patrica Ospina is a 70 year old female with ulcerative esophagitis 01/2025 doing better on ppi, here to reassess Review of Systems Review of Systems: All systems reviewed & are unremarkable except as noted in HPI and below PMFSH Past Medical History Medical History (Updated 06/09/25 @ 08:09 by Palmer Nguyen MD) Erosive esophagitis Cough Restless legs syndrome Dyslipidemia Family history of colon cancer Osteoporosis Encounter for immunization Depression Anxiety Essential hypertension Adenomatous colon polyp Ocular migraine Surgical History Surgical History H/O colonoscopy Family History Family History Mother Acute myocardial infarction 66y/o Hypertension Heart disease Father Carcinoma of colon Hypertension Sibling Carcinoma of colon Social History Social History Smoking packs per day: 1 Smoking cigarettes per day: 20.0 Years smoked: 4 Smoking pack-years: 4.00 Smoking status: Never smoker Tobacco type: cigarettes Second hand tobacco smoke exposure: No Additional smoking assessment comments: ONLY SMOKED IN HIGH SCHOOL Alcohol intake: current Drinks per week: 9 Alcohol use details: occ Substance use: never Substance use type: does not use Lack of Transportation: No Lack of Food: Never True Current Housing: I Have Housing Concerned About Future Housing: No Difficulty Paying Gas/Electric Bills: No Difficulty Paying for Meds: No Currently Unemployed: No Education: Decline to Answer Difficulty w/ Childcare or Family Care: No Living arrangements: with family Occupation/Education: retired Gender identity (if verbalized by the patient): Female Spiritual care concerns: No Agree to blood products: Yes Meds Home Medications and Allergies Home Medications ?Medication ?Instructions ?Recorded ?Confirmed ?Type vitamins A,C,R-nylf-aqosur 4,296 1 cap PO BID #60 caps 01/24/20 06/09/25 Rx mcg-226 mg-90 mg capsule (PreserVision AREDS) cholecalciferol (vitamin D3) 50 50 mcg PO DAILY 05/10/20 06/09/25 History mcg (2,000 unit) capsule (Vitamin D3) magnesium 400 mg PO DAILY 05/10/20 06/09/25 History amlodipine 2.5 mg tablet (Norvasc) 2.5 mg PO DAILY #90 tabs 10/23/24 06/09/25 Rx lisinopril 20 mg tablet See Rx Instructions .Route 11/11/24 06/09/25 Rx .COMPLEX #90 tabs omeprazole 40 mg capsule,delayed 40 mg PO DAILY #30 caps 01/30/25 06/09/25 Rx release duloxetine 20 mg capsule,delayed 20 mg PO DAILY #90 caps 02/07/25 06/09/25 Rx release rosuvastatin 5 mg tablet See Rx Instructions .Route 05/17/25 06/09/25 Rx .COMPLEX #90 tabs alendronate 70 mg tablet 70 mg PO WEEKLY #12 tabs 06/07/25 06/07/25 Rx Allergies Allergy/AdvReac Type Severity Reaction Status Date / Time No Known Allergies Allergy Unknown Verified 06/09/25 07:29 Vital Signs Vital Signs - 24 hr 06/09/25 07:31 Temperature 97.8 F Pulse Rate 72 Respiratory Rate 18 Blood Pressure 154/84 H Pulse Oximetry 100 Oxygen Delivery Room Air Exam Const: General: comfortable and no acute distress HENMT: Face/Nose/Sinus: Normal nares present Eyes: General: appearance normal, both eyes and all related structures Neck: Neck: no JVD Resp: Auscultation: clear to auscultation bilaterally Cardio: Rate: regular rate Rhythm: regular rhythm GI: Inspection: non-distended GI Palp: Yes Soft to palpation Skin: General skin exam: normal color Extrem: General: normal to inspection Psych: Mental Status: mental status grossly normal Assessment and Plan Assessment and plan (1) Erosive esophagitis: Code(s): K22.10 - Ulcer of esophagus without bleeding Status: Acute Assessment and Plan: egd to assess healing on omeprazole
--- NOTE | 2025-06-09 08:25 | S_PTH ---
PATIENT: Patrica Ospina LOC: [facility]#:[id number] AGE/SX: 70/F ROOM: RE06/09/[address]: Palmer Nguyen MD : 1955 BED: DIS: 06/09/2025 SPEC #: [id number] RECD: 06/09/25 09:00 STATUS: DAQUAN RICHARDSON #: [id number] SUSANNA: 06/09/25 08:[address]: Palmer Nguyen DEPT: [facility] Surgical RECD BY: Renetta Gibson ENTERED: 06/09/25 09:00 SP TYPE: Surgical OTHR DR: Patricia Whitlock PA-C Tissues: A - Esophageal Biopsy Procedures: Hematoxylin and Eosin Stain Gross and Microscopic Level 4
[2025-06-09 08:26] VITALS: BP 122/63; PULSE 74; RESP 16; O2SAT 100
[2025-06-09 08:36] VITALS: BP 113/81; PULSE 76; RESP 23; O2SAT 100
[2025-06-09 08:46] VITALS: BP 132/75; PULSE 75; RESP 18; O2SAT 100
== END 2025-06-09 08:50 | disposition home or self-care (01) ==
PROVIDERS: PCP Student in an Organized Health Care Education/Training Program; Referring Provider Internal Medicine Gastroenterology; Visit Provider Internal Medicine Gastroenterology
PROC: 0DJ08ZZ Inspection of Upper Intestinal Tract, Via Natural or Artificial Opening Endoscopic (ICD-10-PCS; CPT 43239; principal; 2025-06-09 08:30)
DX: B37.81 Candidal esophagitis (principal); K44.9 Diaphragmatic hernia without obstruction or gangrene
CPT/HCPCS: 43239; 88305; J7120